=== PATIENT | male | born 1940 | race Caucasian/White ===

== ENCOUNTER 2017-07-01 13:27 | Outpatient (POV) | payer MEDICARE, OTHER, SELFPAY | END 2017-07-01 15:38 | disposition home or self-care (01) | PROVIDERS: Family Provider Internal Medicine Adolescent Medicine; PCP Internal Medicine Adolescent Medicine; Visit Provider Urology | DX: N40.1 Benign prostatic hyperplasia with lower urinary tract symptoms (principal); R33.8 Other retention of urine; N52.9 Male erectile dysfunction, unspecified | CPT/HCPCS: 81002; 99212 ==

== ENCOUNTER → 2017-09-16 17:54 | Outpatient (REF) | payer MEDICARE, OTHER, SELFPAY | LOC: LAB 17:54 | PROVIDERS: Visit Provider Urology | DX: N99.89 Other postprocedural complications and disorders of genitourinary system (principal) | CPT/HCPCS: 87086; 87088; 87186 ==

== ENCOUNTER → 2017-10-24 15:15 | Outpatient (CLI) | payer MEDICARE, OTHER, SELFPAY ==
[2017-10-24 15:37] LABS: Basophils # 0.1 K/mm3 (0-0.2); Basophils % 0.6 % (0.1-2.0); Eosinophils # 0.2 K/mm3 (0.0-0.4); Hematocrit 46.1 % (42.0-52.0); Hemoglobin 15.2 g/dL (14.1-18.0); Mean Corpuscular Hemoglobin 31.1 pg (27.0-31.2); Mean Corpuscular Volume 94.3 fl (80-94); Mean Platelet Volume 7.5 fl (7.4-10.4); Monocytes # 0.7 K/mm3 (0.1-1.0); Monocytes % 7.4 % (1.7-9.3); Neutrophils # 6.5 K/mm3 (1.8-7.8); Platelet Count 283 K/mm3 (142-424); Red Blood Count 4.89 M/mm3 (4.60-6.20); Red Cell Distribution Width 14.2 % (11.5-17.5); White Blood Count 9.4 K/mm3 (4.8-10.8)
[2017-10-24 16:59] LABS: Alanine Aminotransferase 24 U/L (12-78); Albumin Level 3.6 gm/dL (3.4-5.0); Alkaline Phosphatase 115 U/L (46-116); Anion Gap 16.6 mEq/L (5-15); Aspartate Amino Transferase 16 U/L (15-37); Bilirubin,Total 0.6 mg/dL (0.2-1.0); Blood Urea Nitrogen 24 mg/dL (7-18); Calcium 9.9 mg/dL (8.5-10.1); Carbon Dioxide 25 mmol/L (21.0-32.0); Chloride 105 mmol/L (98-107); Creatinine,Serum 1.12 mg/dL (0.70-1.30); Estimated Glomerular Filt Rate 64 ml/min (>60); GFR (African American) 77 ML/MIN (>60); Globulin 3.7 gm/dl (1.3-3.2); Glucose 178 mg/dL (74-106); Potassium 4.6 mmoL/L (3.5-5.1); Sodium 142 mmol/L (136-145); Total Protein,Serum 7.3 gm/dL (6.4-8.2)
== END ==
PROVIDERS: PCP Nurse Practitioner Family; Visit Provider Otolaryngology
DX: Z01.818 Encounter for other preprocedural examination (principal); H93.90 Unspecified disorder of ear, unspecified ear
CPT/HCPCS: 36415; 80053; 85025; 93005

== ENCOUNTER → 2018-07-13 09:58 | Outpatient (CLI) | payer MEDICARE, OTHER, SELFPAY ==
[2018-07-13 11:04] LABS: Hemoglobin A1C 8.5 % (0.0-7.0)
[2018-07-13 11:15] LABS: Alanine Aminotransferase 25 U/L (12-78); Albumin Level 3.6 gm/dL (3.4-5.0); Alkaline Phosphatase 108 U/L (46-116); Anion Gap 17.3 mEq/L (5-15); Aspartate Amino Transferase 18 U/L (15-37); Bilirubin,Total 0.6 mg/dL (0.2-1.0); Blood Urea Nitrogen 20 mg/dL (7-18); Calcium 9.4 mg/dL (8.5-10.1); Carbon Dioxide 23 mmol/L (21.0-32.0); Chloride 105 mmol/L (98-107); Chol/HDL Ratio 4.3 (1-3.5); Cholesterol 136 mg/dL (140-200); Creatinine,Serum 1.09 mg/dL (0.70-1.30); Estimated Glomerular Filt Rate 66 ml/min (>60); GFR (African American) 80 ML/MIN (>60); Globulin 3.5 gm/dl (1.3-3.2); Glucose 161 mg/dL (74-106); HDL Cholesterol 32 mg/dL (27-67); LDL Cholesterol 88 mg/dL (0-130); Potassium 4.3 mmoL/L (3.5-5.1); Sodium 141 mmol/L (136-145); Total Protein,Serum 7.1 gm/dL (6.4-8.2); Triglycerides 81 mg/dL (30-200); VLDL Cholesterol 16 mg/dL (0-40)
[2018-07-14 14:01] LABS: Microalbumin, Urine 105.4 ug/mL (Not Estab.)
== END ==
PROVIDERS: PCP Internal Medicine Adolescent Medicine; Visit Provider Nurse Practitioner Family
DX: E11.29 Type 2 diabetes mellitus with other diabetic kidney complication (principal); E78.2 Mixed hyperlipidemia; I10 Essential (primary) hypertension
CPT/HCPCS: 36415; 80053; 80061; 82043; 83036

== ENCOUNTER → 2021-05-19 10:17 | Outpatient (CLI) | payer MEDICARE, OTHER, SELFPAY ==
[2021-05-19 10:46] LABS: Basophils # 0.1 K/mm3 (0-0.2); Eosinophils # 0.3 K/mm3 (0.0-0.4); Eosinophils % 2.7 % (0.1-12.0); Hematocrit 50.7 % (42.0-52.0); Hemoglobin 16.5 g/dL (14.1-18.0); Lymphocytes # 2.1 K/mm3 (0.7-4.5); Lymphocytes % 20.1 % (10-50); Mean Corpuscular HGB Conc 32.7 g/dL (31.8-35.4); Mean Corpuscular Hemoglobin 32.1 pg (27.0-31.2); Mean Corpuscular Volume 98.3 fl (80-94); Mean Platelet Volume 8.7 fl (7.4-10.4); Monocytes # 0.7 K/mm3 (0.1-1.0); Monocytes % 6.9 % (1.7-9.3); Neutrophils # 7.3 K/mm3 (1.8-7.8); Neutrophils % 69.3 % (37.0-80.0); Platelet Count 306 K/mm3 (142-424); Red Blood Count 5.15 M/mm3 (4.60-6.20); Red Cell Distribution Width 14.9 % (11.5-17.5); White Blood Count 10.6 K/mm3 (4.8-10.8)
[2021-05-19 13:00] LABS: Alanine Aminotransferase 21 U/L (12-78); Albumin Level 3.9 g/dl (3.5-5.0); Albumin/Globulin Ratio 1.5 (1.1-1.8); Alkaline Phosphatase 92 U/L (38-126); Anion Gap 12.8 mEq/L (5-15); Aspartate Amino Transferase 25 U/L (17-59); Bilirubin,Total 0.8 mg/dl (0.2-1.3); Blood Urea Nitrogen 22 mg/dl (9-20); Calcium 9.6 mg/dl (8.4-10.2); Carbon Dioxide 26 mmol/L (22.0-30.0); Chloride 106 mmol/L (98-107); Chol/HDL Ratio 4.7 (1-3.5); Cholesterol 131 mg/dl (140-200); Estimated Glomerular Filt Rate 72 ml/min (>60); GFR (African American) 87 ML/MIN (>60); Globulin 2.6 g/dL (1.3-3.2); Glucose 134 mg/dl (74-100); HDL Cholesterol 28 mg/dl (40-60); Potassium 4.8 mmoL/L (3.5-5.1); Sodium 140 mmol/L (136-145); Total Protein,Serum 6.5 g/dl (6.3-8.2); Triglycerides 87 mg/dl (30-150); VLDL Cholesterol 17 mg/dL (0-40)
[2021-05-19 13:11] LABS: Direct LDL Cholesterol 88.59 mg/dL (100-129)
== END ==
PROVIDERS: Visit Provider Nurse Practitioner Family
DX: E11.29 Type 2 diabetes mellitus with other diabetic kidney complication (principal); I10 Essential (primary) hypertension; E78.2 Mixed hyperlipidemia; Z79.84 Long term (current) use of oral hypoglycemic drugs
CPT/HCPCS: 36415; 80053; 80061; 83036; 85025

== ENCOUNTER → 2022-06-20 09:39 | Outpatient (CLI) | payer MEDICARE, OTHER, SELFPAY ==
[2022-06-20 10:42] LABS: Alanine Aminotransferase 24 U/L (12-78); Albumin Level 3.8 g/dl (3.5-5.0); Albumin/Globulin Ratio 1.5 (1.1-1.8); Alkaline Phosphatase 136 U/L (38-126); Aspartate Amino Transferase 25 U/L (17-59); Bilirubin,Total 1.2 mg/dl (0.2-1.3); Blood Urea Nitrogen 22 mg/dl (9-20); Calcium 9.9 mg/dl (8.4-10.2); Carbon Dioxide 23 mmol/L (22.0-30.0); Chloride 106 mmol/L (98-107); Estimated Glomerular Filt Rate 65 ml/min (>60); GFR (African American) 78 ML/MIN (>60); Globulin 2.6 g/dL (1.3-3.2); Glucose 143 mg/dl (74-100); Sodium 138 mmol/L (136-145); Total Protein,Serum 6.4 g/dl (6.3-8.2)
[2022-06-20 11:02] LABS: Hemoglobin A1C 9.1 % (4.0-6.0)
== END ==
PROVIDERS: PCP Internal Medicine Adolescent Medicine; Visit Provider Internal Medicine Adolescent Medicine
DX: E11.65 Type 2 diabetes mellitus with hyperglycemia (principal); Z79.84 Long term (current) use of oral hypoglycemic drugs
CPT/HCPCS: 36415; 80053; 83036

== ENCOUNTER 2023-12-11 16:09 | Outpatient (CLI) | payer MEDICARE, OTHER, SELFPAY ==
--- NOTE | 2023-12-11 16:24 | XR_ITS ---
PROCEDURE INFORMATION: Exam: XR Left Hip Exam date and time: 12/11/23 04:27 PM Age: 83 years old Clinical indication: Hip pain; Left hip; Additional info: Sciatic pain TECHNIQUE: Imaging protocol: Radiologic exam of the left hip. Views: 2 or 3 views hip with pelvis when performed. COMPARISON: CR XR LUMBAR SPINE MIN 4V 12/11/23 04:27 PM FINDINGS: Bones/joints: Unremarkable. No acute fracture. Soft tissues: Unremarkable. IMPRESSION: No acute findings.
--- NOTE | 2023-12-11 16:25 | XR_ITS ---
PROCEDURE INFORMATION: Exam: XR Lumbosacral Spine Exam date and time: 12/11/23 04:27 PM Age: 83 years old Clinical indication: Low back pain; Additional info: Sciatic pain TECHNIQUE: Imaging protocol: Radiologic exam of the lumbosacral spine. Views: 4 or 5 views. COMPARISON: CR XR HIP LT 2-3V W/PELVIS 12/11/23 04:27 PM FINDINGS: Bones/joints: Degenerative changes. Vacuum disc L2-L3. Vacuum disc L4-L5. Vacuum disc L5-S1. No acute fracture. Normal alignment. Soft tissues: Unremarkable. IMPRESSION: No acute findings.
== END 2023-12-11 23:59 | disposition home or self-care (01) ==
LOC: RAD 16:10
PROVIDERS: PCP Internal Medicine Adolescent Medicine; Visit Provider Nurse Practitioner Family
DX: M54.32 Sciatica, left side (principal)
CPT/HCPCS: 72110; 73502

== ENCOUNTER 2024-01-26 08:56 | Outpatient (CLI) | payer MEDICARE, OTHER, SELFPAY ==
--- NOTE | 2024-01-26 | MR_ITS ---
FINAL REPORT TECHNIQUE: Multiplanar MR without gadolinium enhancement CLINICAL HISTORY: SCIATICA. BILATERAL BACK AND LEG PAIN FINDINGS: Sagittal images show normal vertebral height. Alignment is normal. Marrow signal pattern is unremarkable. There is moderate spondylosis. Note is made of bilateral renal masses which are likely cysts. The largest measures 4.4 cm on the right. L1-2: Mild annular disc bulge without central canal stenosis. L2-3: Moderate annular disc bulge. Facet arthropathy. Mild central canal stenosis and moderate bilateral neuroforaminal narrowing. L3-4: Moderate annular disc bulge. Facet arthropathy. Moderate central canal stenosis and moderate bilateral neuroforaminal narrowing, greatest on the left. L4-5: Moderate annular disc bulge. Facet arthropathy. Moderate to severe central canal stenosis with severe left and moderate right neuroforaminal narrowing. L5-S1: Moderate annular disc bulge. Advanced facet arthropathy. Moderate central canal stenosis with moderate to severe bilateral neuroforaminal narrowing. IMPRESSION: Multilevel degenerative disc disease as detailed above. Incidental finding of renal masses which likely represent cysts. Reviewed, Interpreted and Dictated by Mary Anne Blount MD Transcribed by Zahraa Thomas Authenticated and [facility]
== END 2024-01-26 23:59 | disposition home or self-care (01) ==
LOC: RAD 08:58
PROVIDERS: PCP Nurse Practitioner Family; Visit Provider Nurse Practitioner Family
DX: M54.42 Lumbago with sciatica, left side (principal); G89.29 Other chronic pain
CPT/HCPCS: 72148

== ENCOUNTER 2024-01-27 09:44 | Outpatient (RCR) | payer MEDICARE, OTHER, SELFPAY ==
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
== END 2024-01-27 09:55 | disposition home or self-care (01) ==
LOC: PT 09:44
PROVIDERS: Visit Provider Nurse Practitioner Family
DX: M79.671 Pain in right foot (principal); S91.301A Unspecified open wound, right foot, initial encounter
CPT/HCPCS: 97163

== ENCOUNTER 2024-02-05 09:52 | Outpatient (CLI) | payer MEDICARE, OTHER, SELFPAY ==
--- NOTE | 2024-02-05 09:59 | US_ITS ---
FINAL REPORT CLINICAL HISTORY: Bilateral kidney masses seen on MRI. COMPARISON: MR lumbar spine 01/25/2024 FINDINGS: RENAL ULTRASOUND Ultrasound images of the kidneys were obtained. Limited images of the liver parenchyma demonstrates normal echogenicity. The right kidney measures 12.3 cm in length. The left kidney measures 11.3 cm in length. There are multiple well-circumscribed anechoic structures in both kidneys consistent with benign cysts measuring up to 5.2 cm on the right. IMPRESSION: Multiple benign cysts bilateral kidneys. Reviewed, Interpreted and Dictated by Miguel Roberson MD Transcribed by Taylor Ruggiero Authenticated and [facility]
== END 2024-02-05 23:59 | disposition home or self-care (01) ==
PROVIDERS: PCP Internal Medicine Adolescent Medicine; Visit Provider Nurse Practitioner Family
DX: N28.89 Other specified disorders of kidney and ureter (principal)
CPT/HCPCS: 76770

== ENCOUNTER 2024-10-16 15:57 | Emergency (ER) | payer MEDICARE, OTHER, SELFPAY ==
[2024-10-16] VITALS (8 sets, daily range): BP systolic 116–140; BP diastolic 68–83; PULSE 53–58; RESP 14–27; TEMP 36.7–36.9; O2SAT 93–98; BMI 31.6
--- NOTE | 2024-10-16 16:07 | ED_ITS ---
Discharge Plan Disposition Chief Complaint: Neuro Symptoms/Deficit Prescriptions Prescriptions: No Action Janumet 50-1,000 mg tablet 1 tab PO BID sildenafil (pulm.hypertension) 20 mg tablet 20 mg PO DAILY Patient Comments: TAKE 1 TO 2 TABLET(S) BY MOUTH EVERY DAY NEEDED hydrochlorothiazide 12.5 mg capsule 12.5 mg PO DAILY Patient Comments: TAKE 1 CAPSULE BY MOUTH ONCE DAILY Jardiance 25 mg tablet 25 mg PO DAILY metformin 500 mg tablet 500 mg PO BID glimepiride 4 mg tablet 4 mg PO QAM bisoprolol-hydrochlorothiazide 2.5-6.25 mg tablet 1 tab PO DAILY amlodipine 10 mg tablet 10 mg PO DAILY finasteride 5 mg tablet 5 mg PO DAILY losartan 100 mg tablet 100 mg PO DAILY aspirin [Adult Low Dose Aspirin] 81 mg tablet,delayed release (DR/EC) 81 mg PO DAILY vitamin B complex [B Complex-Vitamin B12] tablet 1 tab PO QAM tamsulosin 0.4 mg capsule,extended release 24hr 0.4 mg PO DAILY sitagliptin phos-metformin [Janumet XR] 100-1,000 mg tablet, ER multiphase 24 hr 1 tab PO QPM atorvastatin 40 mg tablet 40 mg PO DAILY Referrals Follow up/Referrals: Delmar Damon MD [Primary Care Provider] - See instructions Stand Alone Forms Stand Alone Forms: Transfer Record - ED Print Language Print Language: Peruvian Discharge ED Provider: Sergio Sen General Adult HPI General Chief complaint: Neuro Symptoms/Deficit Stated complaint: Slured speech,droopy mouth eye Time Seen by Provider: 10/16/24 16:07 History of Present Illness HPI narrative: Patient presents for evaluation of right-sided facial droop that started yesterday morning. 2 midnights ago was his last known well. Symptoms have been constant since. He describes associated slurred speech and difficulty swallowing liquids and solids. No previous therapies. Has not had similar symptoms before. Denies any pain at this time. No numbness or tingling. No headache. No blurry vision or double vision. Please note that above description of symptoms, in this electronic medical record under categorization of recalled from ER triage doctor by RN are reflective of an initial nursing assessment, however, is not reflective of my full history and physical exam that was personally taken and clarified. Consequentially, this preceding description of symptoms, which may include the patient's categorized chief complaint in the EMR, do not reflect my personal clinical impression, and the ultimate description of history of present illness and patient stated complaints should be deferred to this section of the note. Unless stated otherwise or congruent with this section of the note, additional signs, symptoms, or incongruence should be interpreted as inaccurate with my clinical impression. Related Data Home Medications ?Medication ?Instructions ?Recorded ?Confirmed amlodipine 10 mg tablet 10 mg PO DAILY bp 09/16/17 08/10/19 aspirin 81 mg tablet,delayed 81 mg PO DAILY prevent 09/16/17 08/10/19 release (Adult Low Dose Aspirin) atorvastatin 40 mg tablet 40 mg PO DAILY cholestero; 09/16/17 08/10/19 bisoprolol 2.5 1 tab PO DAILY bp 09/16/17 08/10/19 mg-hydrochlorothiazide 6.25 mg tablet finasteride 5 mg tablet 5 mg PO DAILY urinary 09/16/17 08/10/19 glimepiride 4 mg tablet 4 mg PO QAM sugar 09/16/17 08/10/19 losartan 100 mg tablet 100 mg PO DAILY bp 09/16/17 08/10/19 metformin 500 mg tablet 500 mg PO BID sugar 09/16/17 08/10/19 sitagliptin phos 100 mg-metformin 1 tab PO QPM sugar 09/16/17 08/10/19 ER 1,000 mg tablet,extend rel 24h mp (Janumet XR) tamsulosin 0.4 mg capsule 0.4 mg PO DAILY prostate 09/16/17 08/10/19 vitamin B complex (B 1 tab PO QAM Supplement 09/16/17 08/10/19 Complex-Vitamin B12 tablet) sitagliptin phosphate 50 1 tab PO BID 08/11/18 08/10/19 mg-metformin 1,000 mg tablet (Janumet) empagliflozin 25 mg tablet 25 mg PO DAILY 08/10/19 08/10/19 (Jardiance) hydrochlorothiazide 12.5 mg capsule 12.5 mg PO DAILY 08/10/19 08/10/19 sildenafil (pulm.hypertension) 20 20 mg PO DAILY 08/10/19 08/10/19 mg tablet Allergies Allergy/AdvReac Type Severity Reaction Status Date / Time No Known Allergies Allergy Verified 08/10/19 11:26 [facility] Disclaimer: The information contained in this section may have been updated after the patient was seen, as this information can be updated by other users. Social History Smoking Status: Current every day smoker tobacco type: cigarettes packs per day: 2 alcohol intake: never substance use type: denies use current occupational status: employed Travel in the last 8 weeks: Inside the [place] household members: spouse housing: house current occupation: [employer] current occupational exposures/hazards: No caffeine: Yes Have you lived/traveled outside [place] in past 30 days?: No Contact w/someone who lives/traveled outside US past 30 days?: No Exposure to someone with infectious disease in past 14 days?: No Do you have a fever (greater than 100.4 F or 38 C)?: No Have you tested positive for COVID-19: No Exposed to someone with COVID-19 in past 14 days?: No Do you have a sore throat?: No Do you have a cough?: No Do you have any weakness?: No Do you have any diarrhea?: No Are you experiencing any unusual bleeding?: No Do you have any muscle aches/pain?: No Do you have any abdominal pain?: No Are you experiencing loss of taste or smell?: No Other Medical History Have you received the Flu Vaccine for this season: Yes Have you received the Pneumonia Vaccine: No ROS Obtained: Yes other As per HPI Physical Exam General General appearance: alert and in no apparent distress Head Head exam: atraumatic and normocephalic Eye Eye exam: Present normal appearance Neck Neck exam: Present normal inspection Chest Chest inspection: Present normal inspection and symmetric chest wall rise Respiratory Respiratory exam: Present normal lung sounds bilaterally; Absent respiratory distress Cardiovascular Cardiovascular exam: Present regular rate and normal rhythm Abdominal Exam Abdominal exam: Present soft Neurological Exam Neurological exam: Present alert and oriented X3 Expanded Neurological Exam Comment: Forehead sparing left-sided facial nerve palsy. Patient describes blurry vision on nasal visual field of right eye. No other focal neurologic deficit appreciated. Psychiatric Psychiatric exam: Present normal affect and normal mood Skin Skin exam: Present warm and dry Medical Decision Making Medical Records Medical records reviewed: Yes I reviewed the patient's medical records. Screening: Per USPSTF and CDC recommendations, given the prevalence of disease in our region, it is our hospital?s policy to screen for HIV and viral Hepatitis for all patients aged 18 and over and those with ongoing risk factors. Abner Inquiry Pt receiving controlled substance: No Vital Signs: 10/16/24 16:07 10/16/24 16:08 10/16/24 16:30 Temperature 98.1 F Temperature Source Oral Pulse Rate 56 L 58 L Pulse Rate [Right] 56 L Respiratory Rate 18 14 Blood Pressure 135/83 129/75 Blood Pressure [Right Arm] 135/83 Blood Pressure Mean [Right Arm] 100 02 Sat by Pulse Oximetry 98 98 93 L Oxygen Delivery Method Room Air Room Air Room Air 10/16/24 17:00 10/16/24 17:30 10/16/24 18:01 Temperature Temperature Source Pulse Rate 54 L 53 L 53 L Pulse Rate [Right] Respiratory Rate 27 H 18 19 Blood Pressure 116/68 135/82 131/76 Blood Pressure [Right Arm] Blood Pressure Mean [Right Arm] 02 Sat by Pulse Oximetry 98 96 96 Oxygen Delivery Method Room Air Room Air Room Air 10/16/24 18:31 Temperature Temperature Source Pulse Rate 57 L Pulse Rate [Right] Respiratory Rate 22 Blood Pressure 140/80 Blood Pressure [Right Arm] Blood Pressure Mean [Right Arm] 02 Sat by Pulse Oximetry 96 Oxygen Delivery Method Room Air Lab Data Lab Results 10/16/24 16:10: WBC 10.0, RBC 5.31, Hgb 16.6, Hct 49.8, MCV 93.8, MCH 31.3 H, MCHC 33.3, RDW 14.4, Plt Count 300, MPV 9.5, Neut % (Auto) 64.9, Lymph % (Auto) 22.6, [place] % (Auto) 9.0, Eos % (Auto) 2.5, Baso % (Auto) 0.6, Neut # (Auto) 6.5, Lymph # (Auto) 2.3, [place] # (Auto) 0.9, Eos # (Auto) 0.3, Baso # (Auto) 0.1, PT 10.9, INR 0.97, APTT 26.2, Sodium 137, Potassium 4.8, Chloride 100, Carbon Dioxide 25, Anion Gap 16.8 H, BUN 25 H, Creatinine 1.40 H, Estimated Creat Clear 54, Estimated GFR 49 L, Est GFR ( Amer) 59, Glucose 296 H, Calcium 9.5, Total Bilirubin 0.9, AST 36, ALT 31, Alkaline Phosphatase 118, Troponin I < 0.01, Total Protein 8.1 D, Albumin 4.4, Globulin 3.7 H, Albumin/Globulin Ratio 1.2, Triglycerides 175 H, Cholesterol 124 L, LDL Cholesterol Direct 73.36 L, VLDL Cholesterol 35, HDL Cholesterol 29 L, Cholesterol/HDL Ratio 4.3 H, Plasma/Serum Alcohol < 10, HCV Ab LETTY w/Rflx PCR Qn Negative, HIV Ag/Ab Combo Qual Negative 10/16/24 16:50: Urine Color Yellow, Urine Appearance Clear, Urine pH 6.5, Ur Specific [place] <= 1.005, Urine Protein Negative, Urine Glucose (UA) 3+, Urine Ketones Negative, Urine Blood Negative, Urine Nitrate Negative, Urine Bilirubin Negative, Urine Urobilinogen 1.0, Ur Leukocyte Esterase Negative, Urine RBC None, Urine WBC None, Ur Squamous Epith Cells None, Urine Bacteria None, Urine Opiates Screen Negative, Urine Methadone Screen Negative, Ur Barbituates Screen Negative, Ur Phencyclidine Scrn Negative, Ur Amphetamines Screen Negative, U Benzodiazepines Scrn Negative, Urine Cocaine Screen Negative, U Marijuana (THC) Screen Negative 10/16/24 16:10 10/16/24 16:10 Orders (Tests/Meds): ED MEDICATIONS Generic Name Dose Route Start Last Admin Trade Name Freq PRN Reason Stop Dose Admin Sodium Chloride 10 ml 10/16/24 16:11 Sodium Chloride 0.9% 10ml Flush Syringe IV 11/15/24 16:10 NEEDED PRN Maintain IV Site Sodium Chloride 10 ml 10/16/24 16:18 10/16/24 16:19 Sodium Chloride 0.9% 10ml Syr (Rad Only) IV 11/15/24 16:17 10 ml NEEDED PRN Administration Maintain IV Site Discontinued Medications Generic Name Dose Route Start Last Admin Trade Name Freq PRN Reason Stop Dose Admin Iopamidol 80 ml 10/16/24 16:18 10/16/24 16:18 Iopamidol-370 (76%);100ml Bottle IV 10/16/24 16:19 80 ml ONCE ONE Administration Nicotine 21 mg 10/16/24 18:19 10/16/24 18:32 Nicotine 21mg/24hr Patch TD 10/16/24 18:20 21 mg ONCE ONE Administration Sodium Chloride 50 ml 10/16/24 16:18 10/16/24 16:18 0.9 % Sodium Chloride 50 Ml Vial IV 10/16/24 16:19 50 ml ONCE ONE Administration ORDERS Category Date Time Status CT angio head Stat Cat Scan 10/16/24 16:[address] angio neck Stat Cat Scan 10/16/24 16:[address] head/brain wo con Stat Cat Scan 10/16/24 16:11 Completed Activated Partial Thrombo Time Stat Lab 10/16/24 16:10 Completed Complete Blood Count Auto Diff Stat Lab 10/16/24 16:10 Completed Comprehensive Metabolic Panel Stat Lab 10/16/24 16:10 Completed Drug Screen,Urine Stat Lab 10/16/24 16:50 Completed Ethyl Alcohol Stat Lab 10/16/24 16:10 Completed HIV Combo Stat Lab 10/16/24 16:10 Completed Hepatitis C Ab Qual. W/ RFX Stat Lab 10/16/24 16:10 Completed Lipid Panel Stat Lab 10/16/24 16:10 Completed Prothrombin Time INR Stat Lab 10/16/24 16:10 Completed Troponin I Q3H Lab 10/16/24 19:15 Ordered Troponin I Q3H Lab 10/16/24 22:15 Ordered Troponin I Stat Lab 10/16/24 16:10 Completed Urinalysis and Microscopic Stat Lab 10/16/24 16:50 Completed ECG Request Stat Y 10/16/24 16:11 Ordered Medical Decision Narrative: Patient with history and exam per above presenting for evaluation of facial droop Diagnoses considered include stroke, symptoms unlikely to be consistent with Murillo's palsy, time course inconsistent with TIA, stroke alert activated upon arrival. ED workup and treatment included: ED MEDICATIONS Generic Name Dose Route Start Last Admin Trade Name Freq PRN Reason Stop Dose Admin Sodium Chloride 10 ml 10/16/24 16:11 Sodium Chloride 0.9% 10ml Flush Syringe IV 11/15/24 16:10 NEEDED PRN Maintain IV Site Sodium Chloride 10 ml 10/16/24 16:18 10/16/24 16:19 Sodium Chloride 0.9% 10ml Syr (Rad Only) IV 11/15/24 16:17 10 ml NEEDED PRN Administration Maintain IV Site Discontinued Medications Generic Name Dose Route Start Last Admin Trade Name Freq PRN Reason Stop Dose Admin Iopamidol 80 ml 10/16/24 16:18 10/16/24 16:18 Iopamidol-370 (76%);100ml Bottle IV 10/16/24 16:19 80 ml ONCE ONE Administration Nicotine 21 mg 10/16/24 18:19 10/16/24 18:32 Nicotine 21mg/24hr Patch TD 10/16/24 18:20 21 mg ONCE ONE Administration Sodium Chloride 50 ml 10/16/24 16:18 10/16/24 16:18 0.9 % Sodium Chloride 50 Ml Vial IV 10/16/24 16:19 50 ml ONCE ONE Administration ORDERS Category Date Time Status CT angio head Stat Cat Scan 10/16/24 16:[address] angio neck Stat Cat Scan 10/16/24 16:[address] head/brain wo con Stat Cat Scan 10/16/24 16:11 Completed Activated Partial Thrombo Time Stat Lab 10/16/24 16:10 Completed Complete Blood Count Auto Diff Stat Lab 10/16/24 16:10 Completed Comprehensive Metabolic Panel Stat Lab 10/16/24 16:10 Completed Drug Screen,Urine Stat Lab 10/16/24 16:50 Completed Ethyl Alcohol Stat Lab 10/16/24 16:10 Completed HIV Combo Stat Lab 10/16/24 16:10 Completed Hepatitis C Ab Qual. W/ RFX Stat Lab 10/16/24 16:10 Completed Lipid Panel Stat Lab 10/16/24 16:10 Completed Prothrombin Time INR Stat Lab 10/16/24 16:10 Completed Troponin I Q3H Lab 10/16/24 19:15 Ordered Troponin I Q3H Lab 10/16/24 22:15 Ordered Troponin I Stat Lab 10/16/24 16:10 Completed Urinalysis and Microscopic Stat Lab 10/16/24 16:50 Completed ECG Request Stat Y 10/16/24 16:11 Ordered Labs were independently interpreted by me, significant for no acute findings Imaging was independently visualized and interpreted by me, significant for no acute findings Please refer to radiology report for full details. Although there is no large vessel occlusion on CT imaging, I believe patient would benefit from transfer to stroke center with further workup including possible MRI. Patient was accepted for transfer to outside facility. Critical Care Critical Care Time Critical Care Time: No
--- NOTE | 2024-10-16 16:07 | PC.NURSE ---
PT FSBS [id number]
--- NOTE | 2024-10-16 16:11 | ECG_ITS ---
APPROVED REPORT Exam: Resting ECG HR:56 bpm ECG Measurements Heart Rate 56 AXES OH 250 P 74 QRSd 106 QRS 78 QT 441 T [address] QTc [address] DEPRESSION [0.05+ mV ST DEPRESSION] ABNORMAL ECG Electronically signed by : FRANCOIS RODRIGUEZ, 10/16/2024 23:26:54
--- NOTE | 2024-10-16 16:11 | CT_ITS ---
PROCEDURE INFORMATION: Exam: CTA Head With Contrast, Arteriography Exam date and time: 10/16/2024 4:19 PM Age: 84 years old Clinical indication: Stroke-like symptoms; Other: Stroke symptoms; Additional info: Possible stroke TECHNIQUE: Imaging protocol: Computed tomographic angiography of the head with contrast. Exam focused on the arteries. 3D rendering (Not supervised by radiologist): MIP and/or 3D reconstructed images were created by the technologist. Radiation optimization: All CT scans at this facility use at least one of these dose optimization techniques: automated exposure control; mA and/or kV adjustment per patient size (includes targeted exams where dose is matched to clinical indication); or iterative reconstruction. Contrast material: ISO 370; Contrast volume: 80 ml; Contrast route: INTRAVENOUS (IV); COMPARISON: CT HEAD/BRAIN WO CON 10/16/2024 4:16 PM FINDINGS: ANTERIOR CIRCULATION: Right internal carotid artery: Calcification involving the right carotid siphon without significant stenosis. Right middle cerebral artery: No occlusion or significant stenosis. No aneurysm. Right anterior cerebral artery: No occlusion or significant stenosis. No aneurysm. Left internal carotid artery: Calcification involving the left carotid siphon with utog-uv-pycranpt stenosis. Left middle cerebral artery: No occlusion or significant stenosis. No aneurysm. Left anterior cerebral artery: No occlusion or significant stenosis. No aneurysm. POSTERIOR CIRCULATION: Right vertebral artery: No occlusion or significant stenosis. No aneurysm. Left vertebral artery: No occlusion or significant stenosis. No aneurysm. Basilar artery: No occlusion or significant stenosis. No aneurysm. Right posterior cerebral artery: No occlusion or significant stenosis. No aneurysm. Left posterior cerebral artery: No occlusion or significant stenosis. No aneurysm. IMPRESSION: 1. [id number] left carotid siphon stenosis. 2. No large vessel occlusion.
--- NOTE | 2024-10-16 16:11 | CT_ITS ---
PROCEDURE INFORMATION: Exam: CT Head Without Contrast Exam date and time: 10/16/2024 4:16 PM Age: 84 years old Clinical indication: Stroke-like symptoms; Visual disturbance; Left facial droop; Additional info: Possible stroke TECHNIQUE: Imaging protocol: Computed tomography of the head without contrast. Radiation optimization: All CT scans at this facility use at least one of these dose optimization techniques: automated exposure control; mA and/or kV adjustment per patient size (includes targeted exams where dose is matched to clinical indication); or iterative reconstruction. Other technique: STROKE PROTOCOL was implemented. COMPARISON: CT HEAD/BRAIN WO CON 10/16/2024 4:16 PM FINDINGS: Brain: Age-related volume loss. No acute intracranial Decreased attenuation of the supratentorial white matter is likely secondary to chronic microvascular ischemia. Hemorrhage, midline shift or significant intracranial mass effect. Cerebral ventricles: Ventriculomegaly is commensurate for degree of volume loss. Paranasal sinuses: Visualized sinuses are unremarkable. No fluid levels. Mastoid air cells: Visualized mastoid air cells are well aerated. Bones: Unremarkable. No acute fracture. Soft tissues: Unremarkable. IMPRESSION: No acute intracranial abnormality. ASSESSMENT: ASPECTS ([place] Stroke Program Early CT Score) is 10.
--- NOTE | 2024-10-16 16:11 | CT_ITS ---
PROCEDURE INFORMATION: Exam: CTA Neck With Contrast Exam date and time: 10/16/2024 4:19 PM Age: 84 years old Clinical indication: Stroke-like symptoms; Visual disturbance; Left facial droop; Additional info: Possible stroke TECHNIQUE: Imaging protocol: Computed tomographic angiography of the neck with contrast. Exam focused on the cervical segments of the vasculature. 3D rendering (Not supervised by radiologist): MIP and/or 3D reconstructed images were created by the technologist. Radiation optimization: All CT scans at this facility use at least one of these dose optimization techniques: automated exposure control; mA and/or kV adjustment per patient size (includes targeted exams where dose is matched to clinical indication); or iterative reconstruction. Contrast material: ISOVUE 370; Contrast volume: 80 ml; Contrast route: INTRAVENOUS (IV); COMPARISON: CT HEAD/BRAIN WO CON 10/16/2024 4:16 PM FINDINGS: Limitations: Patient motion. Right common carotid artery: Mild calcification at the right common carotid bifurcation without significant stenosis. Right internal carotid artery: No stenosis of the extracranial segment. No dissection or occlusion. Right external carotid artery: No occlusion or stenosis of the origin. Left common carotid artery: Calcification of the left common carotid bifurcation without significant stenosis. Left internal carotid artery: No stenosis of the extracranial segment. No dissection or occlusion. Left external carotid artery: No occlusion or stenosis of the origin. Right vertebral artery: Moderate right vertebral artery V2 stenosis. Left vertebral artery: Left vertebral artery is dominant. Aorta: Aortic calcification and atheromatous irregularity. Soft tissues: Normal. No significant soft tissue swelling. Bones/joints: Previous median sternotomy. Degenerative change involving the spine. IMPRESSION: 1. Moderate right vertebral artery V2 stenosis. 2. No significant stenosis involving the ICAs. REFERENCES: NASCET CRITERIA. The degree of stenosis in the cervical segment of the internal carotid artery is based on NASCET criteria. Normal is no stenosis. Mild is less than 50% stenosis. Moderate is 50-69% stenosis. Severe is 70% to 99% stenosis. Total occlusion is no detectable patent lumen.
--- NOTE | 2024-10-16 16:12 | PC.NURSE ---
pt to CT
--- NOTE | 2024-10-16 16:12 | PC.NURSE ---
PT TO CT
[2024-10-16 16:17] LABS: Basophils # 0.1 K/mm3 (0-0.2); Basophils % 0.6 % (0.1-2.0); Eosinophils # 0.3 K/mm3 (0.0-0.4); Eosinophils % 2.5 % (0.1-12.0); Hematocrit 49.8 % (42.0-52.0); Hemoglobin 16.6 g/dL (14.1-18.0); Lymphocytes # 2.3 K/mm3 (0.7-4.5); Lymphocytes % 22.6 % (10-50); Mean Corpuscular HGB Conc 33.3 g/dL (31.8-35.4); Mean Corpuscular Hemoglobin 31.3 pg (27.0-31.2); Mean Corpuscular Volume 93.8 fl (80-94); Mean Platelet Volume 9.5 fl (7.4-10.4); Monocytes # 0.9 K/mm3 (0.1-1.0); Neutrophils # 6.5 K/mm3 (1.8-7.8); Neutrophils % 64.9 % (37.0-80.0); Nucleated Red Blood Cells # 0 10^3/uL; Nucleated Red Blood Cells % 0 %; Platelet Count 300 K/mm3 (142-424); Red Blood Count 5.31 M/mm3 (4.60-6.20); Red Cell Distribution Width 14.4 % (11.5-17.5); Red Cell Distribution Width-SD 49.9 fL
[2024-10-16] MEDS: 0.9 % SODIUM CHLORIDE 50 ML VIAL IV (16:18)
[2024-10-16] MEDS: IOPAMIDOL-370 (76%);100ML BOTTLE 80 ML IV (16:18)
[2024-10-16] MEDS: SODIUM CHLORIDE 0.9% 10ML SYR (RAD ONLY) 10 ML IV (16:19)
[2024-10-16 16:23] LABS: Albumin Level 4.4 g/dl (3.5-5.0); Chloride 100 mmol/L (98-107); Sodium 137 mmol/L (136-145)
[2024-10-16 16:24] LABS: Potassium 4.8 mmoL/L (3.5-5.1)
[2024-10-16 16:26] LABS: Alanine Aminotransferase 31 U/L (12-78); Albumin/Globulin Ratio 1.2 (1.1-1.8); Alkaline Phosphatase 118 U/L (38-126); Anion Gap 16.8 mEq/L (5-15); Aspartate Amino Transferase 36 U/L (17-59); Bilirubin,Total 0.9 mg/dl (0.2-1.3); Blood Urea Nitrogen 25 mg/dl (9-20); Carbon Dioxide 25 mmol/L (22.0-30.0); Cholesterol 124 mg/dl (140-200); Creatinine Clearance Estimated 54 mL/min (50-200); Estimated Glomerular Filt Rate 49 ml/min (>60); GFR (African American) 59 ML/MIN (>60); Globulin 3.7 g/dL (1.3-3.2); Total Protein,Serum 8.1 g/dl (6.3-8.2); Triglycerides 175 mg/dl (30-150); VLDL Cholesterol 35 mg/dL (0-40)
[2024-10-16 16:27] LABS: Calcium 9.5 mg/dl (8.4-10.2); Chol/HDL Ratio 4.3 (1-3.5); Glucose 296 mg/dl (74-100); HDL Cholesterol 29 mg/dl (40-60)
[2024-10-16 16:31] LABS: Activated Partial Thrombo Time 26.2 seconds (22.8-30.6); INR 0.97 (0.9-1.1); Prothrombin Time 10.9 seconds (10.1-12.5)
[2024-10-16 16:34] LABS: Ethyl Alcohol < 10 mg/dl (0-10)
[2024-10-16 16:37] LABS: Direct LDL Cholesterol 73.36 mg/dL (100-129)
[2024-10-16 16:38] LABS: Troponin I < 0.01 ng/ml (0.00-0.034)
[2024-10-16 16:58] LABS: Appearance,Urine CLEAR (Clear); Bilirubin,Urine Negative (Negative); Blood, Urine Negative (Negative); Color,Urine YELLOW (Yellow); Glucose,Urine (UA) 3+ (Negative); Ketones,Urine Negative (Negative); Leukocyte Esterase,Urine Negative (Negative); Microscopic, Urine URINE MICROSCOPIC (MICROSCOPIC); Nitrate,Urine Negative (Negative); PH,Urine 6.5 (5.0-8.5); Protein,Urine Negative (Negative); Specific Gravity, Urine <= 1.005 (1.005-1.030)
[2024-10-16 17:10] LABS: Amphetamine/Metha Screen,Urine Negative ng/ml (<1000)
[2024-10-16 17:11] LABS: Barbiturates Screen,Urine Negative ng/ml (<200)
[2024-10-16 17:12] LABS: Benzodiazepines Screen,Urine Negative ng/ml (<200); Cannabinoid Screen,Urine Negative ng/ml (<50)
[2024-10-16 17:13] LABS: Cocaine Screen,Urine Negative ng/ml (<300); Methadone Screen,Urine Negative ng/ml (<300)
[2024-10-16 17:14] LABS: Opiate Screen,Urine Negative ng/ml (<300)
[2024-10-16 17:15] LABS: Phencyclidine Screen,Urine Negative ng/ml (<25)
[2024-10-16 17:20] LABS: Hepatitis C Ab Qual. W/ RFX NEGATIVE (Negative)
[2024-10-16 17:21] LABS: HIV Combo NEGATIVE (Negative)
--- NOTE | 2024-10-16 17:41 | PC.NURSE ---
Called [facility] for a patient transfer for . face sheet was faxed over to them.
--- NOTE | 2024-10-16 17:43 | PC.NURSE ---
just called back to talk to Dr. Sen.
--- NOTE | 2024-10-16 18:05 | PC.NURSE ---
delbert justin on phone with [facility]
[2024-10-16] MEDS: NICOTINE 21MG/24HR PATCH 21 MG TD (18:32)
== END 2024-10-16 19:30 | disposition short-term general hospital (02) ==
PROVIDERS: Emergency Provider Emergency Medicine; PCP Internal Medicine Adolescent Medicine
DX: R47.81 Slurred speech (principal); R29.810 Facial weakness; H53.8 Other visual disturbances; R13.11 Dysphagia, oral phase; F17.210 Nicotine dependence, cigarettes, uncomplicated; Z11.59 Encounter for screening for other viral diseases; Z11.4 Encounter for screening for human immunodeficiency virus [HIV]
CPT/HCPCS: 70450; 70496; 70498; 80053; 80061; 80307; 80320; 81001; 84484; 85025; 85610; 85730; 86803; 87389; 99285; Q9967

== ENCOUNTER 2025-01-09 11:22 | Emergency (ER) | payer MEDICARE, OTHER, SELFPAY ==
--- OUTSIDE RECORDS SUMMARY | 2024-10-09 17:30 | XMS_ITS ---
Author Organization [facility] Address [address] [place] [address] Care Team Providers Care Sales Representative Facility Services Name Role Phone Sona Foote Primary Care Provider Migration, Provider Unavailable Unavailable [facility] Conversion Encounter Medications Medication SIG (Take, Route, Frequency, Duration) Notes Start Date End Date Status B-12 1000 MCG 1 tab(s) orally once a day Active Aspirin 81 MG 1 TAB(S) ORALLY ONCE A DAY *Please review and pick correct strength-formulat ion from Fyber options. If intended option is not shown, discontinue and re-order from Quick Search* Active Contour Test NA FF - USE DIRECTED TWICE DAILY *Please review and pick correct strength-formulat ion from Fyber options. If intended option is not shown, discontinue and re-order from Quick Search* 09/10/2010 Active KELLEY CONTOUR GLUCOMETER DIRECTED *Please review for potential replacement for e-prescription and drug interaction check* 03/24/2010 Active amLODIPine Besylate 10 MG 1 tab(s) orall y once a day; Duration: 90 days Active metFORMIN HCl 1000 MG 1 tab(s) orally 2 times a day; Duration: 90 days Active hydroCHLOROthiazide 12.5 MG 1 cap(s) orally once a day; Duration: 90 Active Glimepiride 4 MG 1 tab(s) orally twice a day; Duration: 90 days Active Vitamin D3 125 MCG 1 CAP(S) ORALLY ONCE A DAY; Duration: 30 DAY(S) *Please review and pick correct strength-formulat ion from Fyber options. If intended option is not shown, discontinue and re-order from Quick Search* Active Sildenafil Citrate 20 MG 1 tab(s) orally once a day; Duration: 30 days Active Triamcinolone Acetonide 0.1 % APPLY CREAM EXTERNALLY THREE TIMES DAILY FOR 14 DAYS; Duration: 14 Active Atorvastatin Calcium 80 MG 1 tab(s) orally once a day; Duration: 30 day(s) Active ZIAC 10 MG-6.25 MG 1 TAB(S) ORALLY ONCE A DAY; Duration: 90 DAYS *Please review for potential replacement for e-prescription and drug interaction check* Active Losartan Potassium 100 MG 1 tab(s) orall y once a day; Duration: 90 Active Farxiga 5 MG 1 tab(s) orally twice a day; Duration: 30 days 05/15/2023 Active CONTOUR LANCETS DIRECTED BID *Please review for potential replacement for e-prescription and drug interaction check* 03/20/2010 Active Encounters Encounter Location Date Provider Diagnosis [facility] [address] [facility] [address] [place] [address] 10/09/2024 Provider Migration Plan Of Treatment Medication Medication Name Sig Start Date Stop Date Notes amLODIPine Besylate 10 MG 1 tab(s) orall y once a day; Duration: 90 days metFORMIN HCl 1000 MG 1 tab(s) orally 2 times a day; Duration: 90 days Glimepiride 4 MG 1 tab(s) orally twic e a day; Duration: 90 days Sildenafil Citrate 20 MG 1 tab(s) orally once a day; Duration: 30 days Atorvastatin Calcium 80 MG 1 tab(s) oral ly once a day; Duration: 30 day(s) Next Appt Details Provider Name:Delmar Damon, 02/02/2025 02:00:00 PM, [address] [facility], [address], [place], [address], Progress Notes * Daylin TURCIOS CDOB:[birth year] (84 yo M)Acc No.[id number]:10/09/2024 Patient: Jairo Daylin SANTACRUZ Provider: Demarcus jimenez Migration :1940 A ge:84 Y S ex:Male Date:10/09/2024 Address:[address] [place] [address] [place], [id number] Pcp:Sona Foote Subjective: * Chief Complaints: * 1 . Multum To Medispan Conversion Encounter. * Medical History: * Medications: T aking Vitamin D3 125 MCG CAPSULE 1 CAP(S) ORALLY ONCE A DAY , Notes to Pharmacist: *Please review and pick correct strength-formulation from Medispan options. If intended option is not shown, discontinue and re-order from Quick Search*, Taking B-12 1000 MCG Tablet 1 tab(s) orally once a day , Taking Aspirin 81 MG TABLET 1 TAB(S) ORALLY ONCE A DAY , Notes to Pharmacist: *Please review and pick correct strength-formulation from Medispan options. If intended option is not shown, discontinue and re-order from Quick Search*, Taking Contour Test NA NA FF - USE DIRECTED TWICE DAILY , Notes to Pharmacist: *Please review and pick correct strength-formulation from Medispan options. If intended option is not shown, discontinue and re-order from Quick Search*, Taking KELLEY CONTOUR GLUCOMETER DIRECTED , Notes to Pharmacist: *Please review for potential replacement for e-prescription and drug interaction check*, Taking CONTOUR LANCETS DIRECTED BID , Notes to Pharmacist: *Please review for potential replacement for e-prescription and drug interaction check*, Taking Triamcinolone Acetonide 0.1 % Cream APPLY CREAM EXTERNALLY THREE TIMES DAILY FOR 14 DAYS , Taking Losartan Potassium 100 MG Tablet 1 tab(s) orally once a day , Taking Farxiga 5 MG Tablet 1 tab(s) orally twice a day , Taking ZIAC 10 MG-6.25 MG TABLET 1 TAB(S) ORALLY ONCE A DAY , Notes to Pharmacist: *Please review for potential replacement for e-prescription and drug interaction check*, Taking hydroCHLOROthiazide 12.5 MG Capsule 1 cap(s) orally once a day Objective: * Vitals: Assessment: Plan: * Treatment: * * Electronic signature of Jai funk Migration on 01/09/2025 at 11:40 AM EDT Sign off status: Pending * Provider: Demarcus jimenez Migration Date: 0 10/09/2024 Generated for Gerson gabriel/Lennie/Woody on: 0 01/09/2025 11:40 AM EDT
[2025-01-09] VITALS (21 sets, daily range): BP systolic 103–161; BP diastolic 54–97; PULSE 49–66; RESP 14–15; TEMP 36.4–36.8; O2SAT 92–100; BMI 30.4
--- OUTSIDE RECORDS SUMMARY | 2025-01-09 11:40 | XMS_ITS | Referral Summary ---
Author Organization [employer] ([place], [place], [place], [place]) Address [address] [place] [address] Care Team Providers Care Balance Wheel Screw Hole Driller Name Role Phone Sona Foote APRN Primary Care Provider [phone] Encounters Date Type Department Care Team Description 10/18/2024 Telephone [facility] [address] [place] [address] Sona Foote APRN Hospital Follow Up 10/16/2024 8:11 PM EDT - 10/17/2024 3:43 PM EDT Hospital Encounter [address] Neuro Telemetry [address] [place] [address] Diego Mendoza MD Brammell, Korey, DO Zohary, Yasser, MD Discharge Disposition: Home or Self Care 10/16/2024 Travel from Last 3 Months Allergies No known active allergies Medications metFORMIN (GLUCOPHAGE) 500 MG tabletIndicatio ns:type 2 diabetes mellitus Take 1 tablet (500 mg total) by mouth 2 (two) times daily with breakfast and dinner Look-alike/S ound-alike medication. Active hydroCHLOROthia zide (MICROZIDE) 12.5 mg capsule Take 1 capsule (12.5 mg total) by mouth daily. Active amLODIPine (NORVASC) 2.5 MG tablet Take by mouth daily Unknown dosage . Active losartan (COZAAR) 100 MG tablet Take 1 tablet (100 mg total) by mouth daily. Active glimepiride (AMARYL) 4 MG tablet Take 1 tablet (4 mg total) by mouth 2 (two) times daily. Active bisoproloL-hydr ochlorothiazide (ZIAC) 10-6.25 mg per tablet Take 1 tablet by mouth daily. Active aspirin 81 MG EC tablet Take 1 tablet (81 mg total) by mouth daily. Active cholecalciferol (VITAMIN D3) 125 mcg (5,000 unit) tablet Take 1 tablet (5,000 Units total) by mouth daily. Active cyanocobalamin 1000 MCG tablet Take 2.5 tablets (2,500 mcg total) by mouth daily. Active atorvastatin (LIPITOR) 40 MG tablet Take 1 tablet (40 mg total) by mouth nightly. Active sildenafiL (REVATIO) tablet Take 1 tablet (20 mg total) by mouth nightly. Active ertugliflozin (Steglatro) 5 mg tabletIndicatio ns:type 2 diabetes mellitus Take 1 tablet (5 mg total) by mouth daily. Active Active Problems Problem Noted Date Diagnosed Date Ischemic stroke 10/16/2024 Social History Tobacco Use Types Packs/Day Years Used Date Smoking Tobacco: Never Assessed Utilities Answer Date Recorded In the past 12 months, has t he electric, gas, oil, or water company threatened to shut off services in your home? No 10/16/2024 Interpersonal Safety Answer Date Record ed How often does anyone, isidro prado family and friends, physically hurt you? Never 10/16/2024 How often does anyone, harpreetiram eve family and friends, insult or talk down to you? Never 10/16/2024 How often does anyone, isidro prado family and friends, threaten you with harm? Never 10/16/2024 How often does anyone, isidro prado family and friends, scream or curse at you? Never 10/16/2024 Housing Stability Answer Date Recorded What is your living situation today? I have a [facility] place to live 10/16/[address] you li ve. Do you have problems with any of the following? None of the above 10/16/2024 Food Insecurity Answer Date Recorded Within the past 12 months, y ou worried that your food would run out before you got money to buy more. Never true 10/16/2024 Within the past 12 months, t he food you bought just didn't last and you didn't have money to get more. Never true 10/16/2024 Transportation Needs Answer Date Record ed In the past 12 months, has l ack of reliable transportation kept you from medical appointments, meetings, work or from getting things needed for daily living? No 10/16/2024 Financial Resource Strain Answer Date R ecorded How hard is it for you to pa y for the very basics like food, housing, medical care, and heating? Would you say it is: Not hard at all 10/16/2024 Employment Answer Date Recorded Do you want help finding or keeping work or a job? I do not need or want help 10/16/2024 Family and Community Support Answer Shayne e Recorded If for any reason you need h elp with day-to-day activities such as bathing, preparing meals, shopping, managing finances, etc., do you get the help you need? I don't need any help 10/16/2024 Feeling Lonely or Isolated 0 10/16 Educational Attainment Answer Date Jose Luis rded Do you speak a language other than [facility] at [facility]? No 10/16/2024 Do you want help with school or training? For example, starting or completing job training or getting a high school diploma, GED or equivalent. No 10/16/2024 Physical Activity Answer Date Recorded Number of minutes of exercise per week 540 10/16/2024 Self Management Answer Date Recorded Because of a physical, menta l, or emotional condition, do you have serious difficulty concentrating, remembering, or making decisions? (5 years or older) No 10/16/2024 Because of a physical, menta l, or emotional condition, do you have difficulty doing errands alone such as visiting a doctor's office or shopping? (15 years or older) No 10/16/2024 Substance Use Answer Date Recorded How many times in the past y ear have you used prescription drugs for non-medical reasons? Never 10/16/2024 How many times in the past year have you used il legal drugs? Never 10/16/2024 Mental Health Answer Date Recorded Calculation of above two rows 0 Sex and Gender Information Value Date Recorded Sex Assigned at Not on file Legal Sex Male 5:59 PM CDT Gender Identity Not on file Sexual Orientation Not on file Last Filed Vital Signs Vital Sign Reading Time Taken Comments Blood Pressure 150/89 10/17/2024 9:25 AM EDT Pulse 56 10/17/2024 9:25 AM EDT Temperature 36.6 C (97.8 F) 10/17/2024 9:25 AM EDT Respiratory Rate 16 10/17/2024 9:25 AM EDT Oxygen Saturation 96% 10/17/2024 5:00 AM EDT Inhaled Oxygen Concentration - - Weight 94.3 kg (208 lb) 10/17/2024 12:18 AM EDT Height 172.7 cm (5' 8 ) 10/17/2024 12:18 AM EDT Body Mass Index 31.63 10/17/2024 12:18 AM EDT Plan of Treatment Not on file Procedures Procedure Name Priority Date/Time Associated Diagnosis Comments NOVA GLUCOSE POC Routine 10/17/2024 10:4 0 AM EDT NOVA GLUCOSE POC Routine 10/17/2024 5:00 AM EDT CBC W/ AUTO DIFF Add-On 10/17/2024 3:40 AM EDT MAGNESIUM Routine 10/17/2024 3:40 AM EDT BASIC METABOLIC PANEL Routine 10/17/2024 3:40 AM EDT LIPID PANEL Routine 10/17/2024 3:40 AM EDT TSH W REFLEX FT4 Routine 10/17/2024 3:40 AM EDT VITAMIN B12 Routine 10/17/2024 3:40 AM EDT HEMOGLOBIN A1C Routine 10/17/2024 3:40 AM EDT MR BRAIN WITHOUT IV CONTRAST STAT 10/17/2024 1:50 AM EDT NOVA GLUCOSE POC Routine 10/16/2024 8:46 PM EDT from Last 3 Months Results * (ABNORMAL) Glucose, Nova Meter (10/17/2024 10:40 AM EDT) Only the most recent of3 resultswithin the time period is included. [facility] POC-GLUCOSE 274(H) 70 - 110 mg/dL 10/17/2024 10:45 AM EDT [facility] Comment: In the event of poor peripheral blood flow, venous or arterial blood should be used due to the potential of erroneous results. 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 Supervisor ID is - [id number] Froy Gallagher MD POINT OF CARE TEST ORDERABLES F inal Result Performing Organization Address City/State/[facility] Co de Phone Number [facility] [address] [place] [address] * (ABNORMAL) CBC with Automated Diff (10/17/2024 3:40 AM EDT) [facility] WBC 9.9(H) 4.2 - 9.1 K/ L 10/17/2024 6:52 AM EDT [facility] RBC 5.16 4.63 - 6.08 M/ L 10/17/2024 6:52 AM EDT [facility] Hemoglobin 16.6 13.7 - 17.5 GM/DL 10/17/2024 6:52 AM EDT [facility] Hematocrit 47.9 40.1 - 51.0 % 10/17/2024 6:52 AM EDT [facility] MCV 93(H) 79 - 92 fL 10/17/2024 6:52 AM EDT [facility] MCH 32.2 25.7 - 32.2 pg 10/17/2024 6:52 AM EDT [facility] MCHC 34.7 32.3 - 36.5 GM/DL 10/17/2024 6:52 AM EDT [facility] RDW 14.1 11.6 - 14.4 % 10/17/2024 6:52 AM EDT [facility] Platelets 265 140 - 375 K/CU MM 10/17/2024 6:52 AM EDT [facility] MPV 10.1 9.4 - 12.4 fL 10/17/2024 6:52 AM EDT [facility] % Neutros 66 34 - 68 % 10/17/2024 6:52 AM EDT [facility] % Lymphs 22 22 - 53 % 10/17/2024 6:52 AM EDT [facility] % Monos 10 5 - 12 % 10/17/2024 6:52 AM EDT [facility] % Eos 3 1 - 7 % 10/17/2024 6:52 AM EDT [facility] % Baso 0 0 - 1 % 10/17/2024 6:52 AM EDT [facility] NRBC Absolute <0.01 0 - 0.012 K/ul 10/17/2024 6:52 AM EDT [facility] # Neutros 6.52(H) 1.78 - 5.38 K/ L 10/17/2024 6:52 AM EDT [facility] # Lymphs 2.13 1.32 - 3.57 K/ L 10/17/2024 6:52 AM EDT [facility] # Monos 0.95(H) 0.30 - 0.82 K/ L 10/17/2024 6:52 AM EDT [facility] # Eos 0.26 0.04 - 0.54 K/ L 10/17/2024 6:52 AM EDT [facility] # Baso 0.04 0.01 - 0.08 K/ L 10/17/2024 6:52 AM EDT [facility] Immature Granulocytes-Re lative 0.30 0.01 - 0.43 % 10/17/2024 6:52 AM EDT [facility] # IG 0.03 0.00 - 0.03 K/uL 10/17/2024 6:52 AM EDT [facility] Blood Venipuncture / Unknown 10/17/2024 3:40 AM EDT 10/17/2024 4:13 AM EDT Narrative [facility] - 10/17/2024 6:52 AM EDT When CBC w/ Auto Diff is ordered the lab will add a Manual Differential as a quality check at no additional charge if: Lymphocytes greater than seventy five percent with normal or increased WBC Monocytes greater than Fifteen percent Basophil greater than four percent Bands >10% or several immature myeloids are seen on scan Blast? Flag noted Atypical Lymph flag noted us [employer] DO LAB BLOOD ORDERABLES Final Res ult Performing Organization Address City/[facility]/ZIP Co de Phone Number [facility] [address] [phone] * TSH with Reflex FT4 (10/17/2024 3:40 AM EDT) TSH 0.850 0.350 - 4.940 uIU/mL 10/17/2024 5:08 AM EDT [facility] Blood Venipuncture / Unknown 10/17/2024 3:40 AM EDT 10/17/2024 4:15 AM EDT [employer] DO LAB BLOOD ORDERABLES Final Res ult Performing Organization Address [facility] Co de Phone Number [facility] [address] [phone] * Magnesium (10/17/2024 3:40 AM EDT) Magnesium 1.7 1.6 - 2.6 mg/dL 10/17/2024 5:08 AM EDT [facility] Blood Venipuncture / Unknown 10/17/2024 3:40 AM EDT 10/17/2024 4:15 AM EDT [employer] DO LAB BLOOD ORDERABLES Final Res ult Performing Organization Address City/[facility]/ZIP Co de Phone Number [facility] [address] [phone] * (ABNORMAL) Hemoglobin A1c (10/17/2024 3:40 AM EDT) Hemoglobin A1C 8.9(H) 4.0 - 5.6 % 10/17/2024 4:44 AM EDT [facility] Comment: Hemoglobin A1C levels are related to mean glucose during the preceding 2-3 months. Less than 7% demonstrates glycemic control in diabetic patients. Hemoglobin AlC % Suggested Diagnosis > or = 6.5 Diabetic 5.7 - 6.4 Prediabetic <5.7 Non-diabetic eAVG Glucose 208.73(H) 70 - 126 mg/dL 10/17/2024 4:44 AM EDT [facility] Blood Venipuncture / Unknown 10/17/2024 3:40 AM EDT 10/17/2024 4:13 AM EDT [employer] DO LAB BLOOD ORDERABLES Final Res ult [facility] [address] [phone] * Vitamin B12 (10/17/2024 3:40 AM EDT) Vitamin B12 544 213 - 816 pg/mL 10/17/2024 5:08 AM EDT [facility] Blood Venipuncture / Unknown 10/17/2024 3:40 AM EDT 10/17/2024 4:15 AM EDT [employer] DO LAB BLOOD ORDERABLES Final Res ult [facility] [address] [phone] * Lipid panel (10/17/2024 3:40 AM EDT) Triglycerides 71 <=149 mg/dL 10/17/2024 5:08 AM EDT [facility] Comment: Normal: < 150 mg/dL Borderline High: 150 to 199 mg/dL High: 200 to 499 mg/dL Very High: >/= 500 mg/dL Cholesterol 116 100 - 199 mg/dL 10/17/2024 5:08 AM EDT [facility] Comment: Child: Desirable: < 170 mg/dL Borderline: 170 to 199 mg/dL High: >/= 200 mg/dL Adult: Desirable: < 200 mg/dL Borderline: 200 to 239 mg/dL High: >/= 240 mg/dL HDL Cholesterol 32 See Comment mg/dL 10/17/2024 5:08 AM EDT [facility] Comment: Major risk factor for heart disease: < 40 mg/dL Negative risk factor for heart disease: >/= 60 mg/dL LDL Cholesterol, Calculated 70 0 - 100 mg/dL 10/17/2024 5:08 AM EDT [facility] Comment: Optimal: < 100 mg/dL Near or above optimal: 100 to 129 mg/dL Borderline high: 130 to 159 mg/dL High: 160 to 189 mg/dL Very high: >/= 190 mg/dL Based on AHA/NCEP Guidelines LDl/HDL Ratio 2 0 - 4 10/17/2024 5:08 AM EDT [facility] Cholesterol/HDL ratio 3.6 0.0 - 5.0 mg/dL 10/17/2024 5:08 AM EDT [facility] VLDL Cholesterol 14.2 5 - 40 mg/dL 10/17/2024 5:08 AM EDT [facility] Blood Venipuncture / Unknown 10/17/2024 3:40 AM EDT 10/17/2024 4:15 AM EDT us Isaiah Rowan DO LAB BLOOD ORDERABLES Final Res ult [facility] [address] [place] [address], [facility] [phone] * (ABNORMAL) Basic Metabolic Panel (10/17/2024 3:40 AM EDT) Sodium 135(L) 136 - 145 meq/L 10/17/2024 5:08 AM EDT [facility] Potassium 3.9 3.4 - 5.1 meq/L 10/17/2024 5:08 AM EDT [facility] CO2 23 22 - 29 meq/L 10/17/2024 5:08 AM EDT [facility] Chloride 105 98 - 112 meq/L 10/17/2024 5:08 AM EDT [facility] Glucose 153(H) 82 - 115 mg/dL 10/17/2024 5:08 AM EDT [facility] BUN 18.6 8.4 - 25.7 mg/dL 10/17/2024 5:08 AM EDT [facility] Creatinine 1.02 0.72 - 1.25 mg/dL 10/17/2024 5:08 AM EDT [facility] BUN/Creatinine 18 8 - 20 10/17/2024 5:08 AM EDT [facility] Calcium 9.5 8.4 - 10.2 mg/dL 10/17/2024 5:08 AM EDT [facility] Anion Gap 11 4 - 12 10/17/2024 5:08 AM EDT [facility] eGFR (mL/min/1.73m2) 73 >=60 mL/min/1.7 3m2 10/17/2024 5:08 AM EDT [facility] Osmolality Calc 275.2 mOsm/kg 5:08 AM EDT [facility] Blood Venipuncture / Unknown 10/17/2024 3:40 AM EDT 10/17/2024 4:15 AM EDT us Isaiah Rowan DO LAB BLOOD ORDERABLES Final Res ult [facility] [address] [phone] * MR Brain Without IV Contrast (10/17/2024 1:50 AM EDT) Anatomical Region Laterality Modality Head, Brain Magnetic Resonan ce (MRI) 10/17/2024 7:34 AM EDT Impressions 10/17/2024 7:40 AM EDT 1. Small acute infarcts involving the right thalamus, right posterior limb of the internal capsule, and right parietal deep white matter. No large territorial infarct is noted. 2. There is no hemorrhage. 3. Advanced atrophy with severe microvascular change. Images reviewed, interpreted, dictated and electronically signed by Saul Thomas MD Voice child development professor technology ([employer]) is used for the dictation of this note and sound-alike words might be erroneously placed despite reviewing this note for accuracy. Errors in dictation may reflect use of voice recognition software and not all errors in child development professor may have been detected prior to signing. Narrative 10/17/2024 7:40 AM EDT MRI BRAIN WITHOUT CONTRAST HISTORY: Left facial droop TECHNIQUE: Multiplanar, multisequence images of the brain were performed without contrast. FINDINGS: The diffusion-weighted images demonstrate small areas of restricted diffusion involving the right thalamus, right internal capsule, and right parietal deep white matter. These findings are consistent with small infarcts. There is no large territorial infarct. The cervicomedullary junction is normal. There is advanced atrophy. There is significant abnormal increased T2 signal throughout the white matter consistent with severe microvascular change. There is no edema or hemorrhage. There is no mass or mass effect. Procedure Note Saul Thomas MD - 10/17/2024 MRI BRAIN WITHOUT CONTRAST HISTORY: Left facial droop TECHNIQUE: Multiplanar, multisequence images of the brain were performed without contrast. FINDINGS: The diffusion-weighted images demonstrate small areas of restricted diffusion involving the right thalamus, right internal capsule, and right parietal deep white matter. These findings are consistent with small infarcts. There is no large territorial infarct. The cervicomedullary junction is normal. There is advanced atrophy. There is significant abnormal increased T2 signal throughout the white matter consistent with severe microvascular change. There is no edema or hemorrhage. There is no mass or mass effect. IMPRESSION: 1. Small acute infarcts involving the right thalamus, right posterior limb of the internal capsule, and right parietal deep white matter. No large territorial infarct is noted. 2. There is no hemorrhage. 3. Advanced atrophy with severe microvascular change. Images reviewed, interpreted, dictated and electronically signed by Saul Thomas MD Voice child development professor technology ([employer]) is used for the dictation of this note and sound-alike words might be erroneously placed despite reviewing this note for accuracy. Errors in dictation may reflect use of voice recognition software and not all errors in child development professor may have been detected prior to signing. us Isaiah Rowan DO IMG MRI ORDERABLES Final Resul t from Last 3 Months Insurance MEDICARE PART A B [employer] Advance Directives For more information, please contact: [phone] * Full Code (Latest Code Status on File) Date Activated Date Inactivated Comments 10/16/2024 9:07 PM 10/17/2024 4:44 PM Care Teams Balance Wheel Screw Hole Driller Relationship Specialty Start Date End Date Sona Foote, CLERICAL PRODUCTION WORKER [address] [place] [address] PCP - General Nurse Practitioner 10/16/24
--- OUTSIDE RECORDS SUMMARY | 2025-01-09 11:40 | XMS_ITS | Clinical Summary ---
Author Organization [employer] ([place], [place], [place], [place]) Address [address] [place] [address] Care Team Providers Care Surg Rn Name Role Phone DarySona gerard KELVIN Primary Care Provider + [phone] Allergies No known active allergies Medications metFORMIN [...] Noted Date Diagnosed Date Ischemic stroke 10/16/2024 Encounters Date Type Department Care Team Description 10/18/2024 Telephone [facility] [address] [place] [address] Sona Foote APRN [facility] Follow Up 10/16/2024 8:11 PM EDT - 10/17/2024 3:43 PM EDT Hospital Encounter [address] Neuro Telemetry [address] [place] [address] Diego Mendoza MD Brammell, Korey, DO Zohary, Yasser, MD Discharge Disposition: Home or Self Care 10/16/2024 Travel from Last 3 Months Social History Tobacco Use Types Packs/Day Years [...] living situation today? I have a [facility] place to live 10/16/2024 Think about the [...] Do you speak a language other than Citizen [place] [facility]? No 10/16/2024 Do you want help with [...] 10/17/2024 12:18 AM EDT Plan of Treatment Health Maintenance Due Date Last Done Comments Depression Screening (12+) 1952 Tobacco Cessation Counseling and Screening (12+) 1952 Medicare Initial AWV G0438 08/08/2008 Respiratory Syncytial Virus (RSV) Adult or (1 - 1-dose 75+ series) 2017 COVID-19 VACCINE ( - season) 2024, 03/01/2021 Falls Risk Screening 07/07/2024 Influenza Vaccine (#1) 2025 DTAP/TDAP/TD VACCINES (2 - Td or Tdap) 01/11/2034 Shingles Vaccine (Zoster) Completed 09/16/2023, 05/2023 Pneumococcal 50+ years Completed 02/18/2024 Procedures Procedure Name Priority Date/Time Associated Diagnosis [...] of3 resultswithin the time period is included. POC-GLUCOSE 274(H) 70 - 110 mg/dL 10/17/2024 10:45 AM EDT [facility] Comment: In the event of poor peripheral blood flow, venous or arterial blood should be used due to the potential of erroneous results. Notified Nurse RBV Chief Engineer [id number] 10/17/2024 10:45 AM EDT [facility] Blood WHOLE BLOOD / Unknown 10/17/2024 10:40 AM EDT 10/17/2024 10:45 AM EDT Narrative [facility] - 10/17/2024 10:45 AM EDT Chief Engineer ID is - [id number] us Froy Gallagher MD POINT OF CARE TEST ORDERABLES F inal Result [facility] [address] [place] [address], [facility] [phone] * (ABNORMAL) CBC with Automated Diff (10/17/2024 3:40 AM EDT) WBC 9.9(H) 4.2 - 9.1 K/ L 10/17/2024 6:52 AM EDT [facility] RBC 5.16 4.63 - 6.08 M/ L 10/17/2024 6:52 AM EDT [facility] Hemoglobin 16.6 13.7 - 17.5 GM/DL 10/17/2024 6:52 AM EDT [facility] Hematocrit 47.9 40.1 - 51.0 % 10/17/2024 6:52 AM EDT [facility] MCV 93(H) 79 - 92 fL 10/17/2024 6:52 AM EDT [facility] MCH 32.2 25.7 - 32.2 pg 10/17/2024 6:52 AM EDT [facility] MCHC 34.7 32.3 - 36.5 GM/DL 10/17/2024 6:52 AM EDT [facility] RDW 14.1 11.6 - 14.4 % 10/17/2024 6:52 AM EDT [facility] Platelets 265 140 - 375 K/CU MM 10/17/2024 6:52 AM EDT [facility] MPV 10.1 9.4 - 12.4 fL 10/17/2024 6:52 AM EDT [facility] % Neutros 66 34 - 68 % 10/17/2024 6:52 AM EDT [facility] % Lymphs 22 22 - 53 % 10/17/2024 6:52 AM EDT [facility] % Monos 10 5 - 12 % 10/17/2024 6:52 AM EDT [facility] % Eos 3 1 - 7 % 10/17/2024 6:52 AM EDT [facility] % Baso 0 0 - 1 % 10/17/2024 6:52 AM EDT [facility] NRBC Absolute <0.01 0 - 0.012 K/ul 10/17/2024 6:52 AM EDT [facility] # Neutros 6.52(H) 1.78 - 5.38 K/ L 10/17/2024 6:52 AM EDT [facility] # Lymphs 2.13 1.32 - 3.57 K/ L 10/17/2024 6:52 AM EDT [facility] # Monos 0.95(H) 0.30 - 0.82 K/ L 10/17/2024 6:52 AM EDT [facility] # Eos 0.26 0.04 - 0.54 K/ L 10/17/2024 6:52 AM EDT [facility] # Baso 0.04 0.01 - 0.08 K/ L 10/17/2024 6:52 AM EDT [facility] Immature Granulocytes-Re lative 0.30 0.01 - 0.43 % 10/17/2024 6:52 AM EDT [facility] # IG 0.03 0.00 - 0.03 K/uL 10/17/2024 6:52 AM EDT [facility] Blood Venipuncture / Unknown 10/17/2024 3:40 AM EDT 10/17/2024 4:13 AM EDT Narrative [facility] - 10/17/2024 6:52 AM EDT When [...] Flag noted Atypical Lymph flag noted us Kuponjo DO LAB BLOOD ORDERABLES Final Res ult Performing Organization Address [facility]/ZIP Co de Phone Number [facility] [address] [phone] * TSH with Reflex FT4 (10/17/2024 3:40 AM EDT) TSH 0.850 0.350 - 4.940 uIU/mL 10/17/2024 5:08 AM EDT [facility] Blood Venipuncture / Unknown 10/17/2024 3:40 AM EDT 10/17/2024 4:15 AM EDT us Kuponjo DO LAB BLOOD ORDERABLES Final Res ult [facility] [address] [phone] * Magnesium (10/17/2024 3:40 AM EDT) Magnesium 1.7 1.6 - 2.6 mg/dL 10/17/2024 5:08 AM EDT [facility] Blood Venipuncture / Unknown 10/17/2024 3:40 AM EDT 10/17/2024 4:15 AM EDT [facility] LAB BLOOD ORDERABLES Final Res ult Performing Organization Address [facility] Co de Phone Number [facility] [address] [phone] * (ABNORMAL) Hemoglobin A1c (10/17/2024 3:40 AM EDT) Hemoglobin A1C 8.9(H) 4.0 - 5.6 % 10/17/2024 4:44 AM EDT [facility] Comment: Hemoglobin A1C levels are related to mean glucose during the preceding 2-3 months. Less than 7% demonstrates glycemic control in diabetic patients. Hemoglobin AlC % Suggested Diagnosis > or = 6.5 Diabetic 5.7 - 6.4 Prediabetic <5.7 Non-diabetic eAVG Glucose 208.73(H) 70 - 126 mg/dL 10/17/2024 4:44 AM EDT [facility] Blood Venipuncture / Unknown 10/17/2024 3:40 AM EDT 10/17/2024 4:13 AM EDT Kuponjo DO LAB BLOOD ORDERABLES Final Res ult Performing Organization Address City/State/[facility] Co de Phone Number [facility] [address] [phone] * Vitamin B12 (10/17/2024 3:40 AM EDT) Vitamin B12 544 213 - 816 pg/mL 10/17/2024 5:08 AM EDT [facility] Blood Venipuncture / Unknown 10/17/2024 3:40 AM EDT 10/17/2024 4:15 AM EDT us Isaiah Rowan DO LAB BLOOD ORDERABLES Final Res ult [facility] [address] [phone] * Lipid panel (10/17/2024 3:40 AM EDT) Triglycerides 71 <=149 mg/dL 10/17/2024 5:08 AM EDT [facility] Comment: Normal: < 150 mg/dL Borderline High: 150 to 199 mg/dL High: 200 to 499 mg/dL Very High: >/= 500 mg/dL Cholesterol 116 100 - 199 mg/dL 10/17/2024 5:08 AM EDT [facility] Comment: Child: Desirable: < 170 mg/dL Borderline: 170 to 199 mg/dL High: >/= 200 mg/dL Adult: Desirable: < 200 mg/dL Borderline: 200 to 239 mg/dL High: >/= 240 mg/dL HDL Cholesterol 32 See Comment mg/dL 10/17/2024 5:08 AM EDT [facility] Comment: Major risk factor for heart disease: < 40 mg/dL Negative risk factor for heart disease: >/= 60 mg/dL LDL Cholesterol, Calculated 70 0 - 100 mg/dL 10/17/2024 5:08 AM EDT [facility] Comment: Optimal: < 100 mg/dL Near or above optimal: 100 to 129 mg/dL Borderline high: 130 to 159 mg/dL High: 160 to 189 mg/dL Very high: >/= 190 mg/dL Based on AHA/NCEP Guidelines LDl/HDL Ratio 2 0 - 4 10/17/2024 5:08 AM EDT [facility] Cholesterol/HDL ratio 3.6 0.0 - 5.0 mg/dL 10/17/2024 5:08 AM EDT [facility] VLDL Cholesterol 14.2 5 - 40 mg/dL 10/17/2024 5:08 AM EDT [facility] Blood Venipuncture / Unknown 10/17/2024 3:40 AM EDT 10/17/2024 4:15 AM EDT us Isaaih Rowan DO LAB BLOOD ORDERABLES Final Res ult [facility] [address] [phone] * (ABNORMAL) Basic Metabolic Panel (10/17/2024 3:40 AM EDT) Sodium 135(L) 136 - 145 meq/L 10/17/2024 5:08 AM EDT [facility] Potassium 3.9 3.4 - 5.1 meq/L 10/17/2024 5:08 AM EDT [facility] CO2 23 22 - 29 meq/L 10/17/2024 5:08 AM EDT [facility] Chloride 105 98 - 112 meq/L 10/17/2024 5:08 AM EDT [facility] Glucose 153(H) 82 - 115 mg/dL 10/17/2024 5:08 AM EDT [facility] BUN 18.6 8.4 - 25.7 mg/dL 10/17/2024 5:08 AM EDT [facility] Creatinine 1.02 0.72 - 1.25 mg/dL 10/17/2024 5:08 AM EDT [facility] BUN/Creatinine 18 8 - 20 10/17/2024 5:08 AM EDT [facility] Calcium 9.5 8.4 - 10.2 mg/dL 10/17/2024 5:08 AM EDT [facility] Anion Gap 11 4 - 12 10/17/2024 5:08 AM EDT [facility] eGFR (mL/min/1.73m2) 73 >=60 mL/min/1.7 3m2 10/17/2024 5:08 AM EDT [facility] Osmolality Calc 275.2 mOsm/kg 5:08 AM EDT [facility] Blood Venipuncture / Unknown 10/17/2024 3:40 AM EDT 10/17/2024 4:15 AM EDT us Isaiah Rowan DO LAB BLOOD ORDERABLES Final Res ult [facility] [address] [place] [phone], [facility] [phone] * MR Brain Without IV Contrast (10/17/2024 [...] electronically signed by Saul Thomas MD Voice legal researcher technology ([employer]) is used for the dictation of this note and sound-alike words might be erroneously placed despite reviewing this note for accuracy. Errors in dictation may reflect use of voice recognition software and not all errors in legal researcher may have been detected prior to signing. [...] electronically signed by Saul Thomas MD Voice legal researcher technology ([employer]) is used for the dictation of this note and sound-alike words might be erroneously placed despite reviewing this note for accuracy. Errors in dictation may reflect use of voice recognition software and not all errors in legal researcher may have been detected prior to signing. Isaiah Rowan DO IMG MRI ORDERABLES Final Resul t from Last [address] [place] [address] MEDICARE PART A B [employer] Advance Directives For more information, please contact: [phone] * Full Code (Latest Code Status on File) Date Activated Date Inactivated Comments 10/16/2024 9:07 PM 10/17/2024 4:44 PM Care Teams Surg Rn Relationship Specialty Start Date End Date Sona Foote, INSURANCE CLAIMS EXAMINER[address] [place] [address] PCP - General Nurse Practitioner 10/16/24
--- OUTSIDE RECORDS SUMMARY | 2025-01-09 11:42 | XMS_ITS | Patient Health Record ---
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 Name Role Phone Sona Foote Primary Care Provider [phone] Delmar Damon Unavailable [phone] Migration, Provider Unavailable Unavailable Allergies No Known Allergies Results Component Value Reference Range Notes MRI : Lumbosacral Spine Reviewed date:02/02/2024 09:24:57 AM Interpretation: Performing Lab: Notes/Report: MRI : Lumbosacral Spine Reviewed date:02/02/2024 09:24:57 AM Interpretation: Performing Lab: Notes/Report: LIPID PANEL, STANDARD ([id number]) Reviewed date:11/05/2024 10:21:27 AM Interpretation: Performing Lab:CB, [facility] [id number] [facility] [[email or web address], [facility] HospitalYfzqJR[address] Aron Johnson Notes/Report: NON-FASTING; NON-FASTING; NON-FASTING CHOLESTEROL, TOTAL 117 <200 mg/dL HDL CHOLESTEROL 32 > OR = 40 mg/dL TRIGLYCERIDES 123 <150 mg/dL LDL-CHOLESTEROL 65 Reference range: <100 Desirable range <100 mg/dL for primary prevention; <70 mg/dL for patients with CHD or diabetic patients with > or = 2 CHD risk factors. LDL-C is now calculated using the Ainsley calculation, which is a validated novel method providing better accuracy than the Friedewald equation in the estimation of LDL-C. Kirk DUNN et al. EJ. 2013;310(19): 3439-2074 (http://education.AlterG.com/faq/IFQ434) CHOL/HDLC RATIO 3.7 <5.0 (calc) NON HDL CHOLESTEROL 85 <130 mg/dL (calc) For patients with diabetes plus 1 major ASCVD risk factor, treating to a non-HDL-C goal of <100 mg/dL (LDL-C of <70 mg/dL) is considered a therapeutic option. COMPREHENSIVE METABOLIC PANE L ([id number]) Reviewed date:11/05/2024 10:21:28 AM Interpretation: Performing Lab:ANDRA [employer] [id number] [employer] [facility] [place] [id number] Aron Johnson Notes/Report: NON-FASTING; NON-FASTING; NON-FASTING GLUCOSE 140 65-99 mg/dL Fasting reference interval For someone without known diabetes, a glucose value >125 mg/dL indicates that they may have diabetes and this should be confirmed with a follow-up test. UREA NITROGEN (BUN) 28 7-25 mg/dL CREATININE 1.29 0.70-1.22 mg/dL EGFR 55 > OR = 60 mL/min/1.73m2 BUN/CREATININE RATIO 22 6-22 (calc) SODIUM 137 135-146 mmol/L POTASSIUM 4.5 3.5-5.3 mmol/L CHLORIDE 103 98-110 mmol/L CARBON DIOXIDE 23 20-32 mmol/L CALCIUM 10.2 8.6-10.3 mg/dL PROTEIN, TOTAL 7.1 6.1-8.1 g/dL ALBUMIN 4.2 3.6-5.1 g/dL GLOBULIN 2.9 1.9-3.7 g/dL (calc) ALBUMIN/GLOBULIN RATIO 1.4 1.0-2.5 (calc) BILIRUBIN, TOTAL 0.9 0.2-1.2 mg/dL ALKALINE PHOSPHATASE 108 35-144 U/L AST 19 10-35 U/L ALT 21 9-46 U/L HEMOGLOBIN A1c (496) Reviewed date:11/05/2024 10:21:28 AM Interpretation: Performing Lab:[facility] [employer] [id number] [employer] [facility] [place] [id number] Aron Johnson Notes/Report: NON-FASTING; NON-FASTING; NON-FASTING HEMOGLOBIN A1c 9.9 <5.7 % For someone without known diabetes, a hemoglobin A1c value of 6.5% or greater indicates that they may have diabetes and this should be confirmed with a follow-up test. For someone with known diabetes, a value <7% indicates that their diabetes is well controlled and a value greater than or equal to 7% indicates suboptimal control. A1c targets should be individualized based on duration of diabetes, age, comorbid conditions, and other considerations. Currently, no consensus exists regarding use of hemoglobin A1c for diagnosis of diabetes for children. Ultrasound : Renal, bilatera l Reviewed date:02/10/2024 10:41:36 AM Interpretation: Performing Lab: Notes/Report: Ultrasound : Renal, bilatera l Reviewed date:02/10/2024 10:41:36 AM Interpretation: Performing Lab: Notes/Report: BASIC METABOLIC PANEL ([id number] ) Reviewed date:02/20/2024 02:10:46 PM Interpretation: Performing Lab:AN[facility] [employer] [id number] [place] [employer], [id number] Aron Johnson Notes/Report: NON-FASTING; NON-FASTING GLUCOSE 211 65-99 mg/dL Fasting reference interval For someone without known diabetes, a glucose value >125 mg/dL indicates that they may have diabetes and this should be confirmed with a follow-up test. UREA NITROGEN (BUN) 20 7-25 mg/dL CREATININE 1.16 0.70-1.22 mg/dL EGFR 63 > OR = 60 mL/min/1.73m2 BUN/CREATININE RATIO SEE NOTE: 6-22 (calc) Not Reported: BUN and Creatinine are within reference range. SODIUM 137 135-146 mmol/L POTASSIUM 4.9 3.5-5.3 mmol/L CHLORIDE 101 98-110 mmol/L CARBON DIOXIDE 25 20-32 mmol/L CALCIUM 10.0 8.6-10.3 mg/dL HEMOGLOBIN A1c (496) Reviewed date:02/20/2024 02:10:47 PM Interpretation: Performing Lab:[facility] [employer] [id number] [employer], TellFiSpefDC[address] Aron Johnson Notes/Report: NON-FASTING; NON-FASTING HEMOGLOBIN A1c 8.8 <5.7 % of total Hgb For someone without known diabetes, a hemoglobin A1c value of 6.5% or greater indicates that they may have diabetes and this should be confirmed with a follow-up test. For someone with known diabetes, a value <7% indicates that their diabetes is well controlled and a value greater than or equal to 7% indicates suboptimal control. A1c targets should be individualized based on duration of diabetes, age, comorbid conditions, and other considerations. Currently, no consensus exists regarding use of hemoglobin A1c for diagnosis of diabetes for children. This test was performed on the Ashley bobbi c503 platform. Effective 09/10/23, a change in test platforms from the Davis [employer]itor Internal to the Ashley bobbi c503 may have shifted HbA1c results compared to historical results. Based on laboratory validation testing conducted at [facility], the Ashley platform relative to the Davis platform had an average increase in HbA1c value of < or = 0.3%. This difference is within accepted variability established by the National Glycohemoglobin Standardization Program. Note that not all individuals will have had a shift in their results and direct comparisons between historical and current results for testing conducted on different platforms is not recommended. Medications Medication SIG (Take, Route, Frequency, Duration) Notes Start Date End Date Status amLODIPine Besylate 10 MG 1 tab(s) orall y once a day; Duration: 90 days Active hydroCHLOROthiazide 12.5 MG 1 cap(s) orally once a day; Duration: 90 Active Aspirin 81 MG 1 TAB(S) ORALLY ONCE A DAY *Please review and pick correct strength-formulat ion from I Move You options. If intended option is not shown, discontinue and re-order from Quick Search* Active Losartan Potassium 100 MG Take 1 tablet by mouth once daily; Duration: 90 Active Farxiga 10 MG 1 tablet Orally Once a day; Duration: 90 days 10/20/2024 Active Vitamin D3 125 MCG 1 CAP(S) ORALLY ONCE A DAY; Duration: 30 DAY(S) *Please review and pick correct strength-formulat ion from I Move You options. If intended option is not shown, discontinue and re-order from Quick Search* Active Atorvastatin Calcium 80 MG Take 1 tablet by mouth once daily; Duration: 90 Active Glimepiride 4 MG Take 1 tablet by mouth twice daily; Duration: 90 Active metFORMIN HCl 1000 MG Take 1 tablet by mouth twice daily; Duration: 90 Active Clopidogrel Bisulfate 75 MG Take 1 tablet by mouth once daily; Duration: 30 Active Sildenafil Citrate 20 MG Take 1 tablet b y mouth once daily for 30 days; Duration: 30 Active B-12 1000 MCG 1 tab(s) orally once a day Active SMATOOS GLUCOMETER DIRECTED *Please review for potential replacement for e-prescription and drug interaction check* 03/24/2010 Active Contour Test NA FF - USE DIRECTED TWICE DAILY *Please review and pick correct strength-formulat ion from I Move You options. If intended option is not shown, discontinue and re-order from Quick Search* 09/10/2010 Active Bisoprolol-hydroCHLOROthi azide 10-6.25 MG 1 tablet Orally Once a day Active Vitamin C 500 MG as directed Orally Active CONTOUR LANCETS DIRECTED BID *Please review for potential replacement for e-prescription and drug interaction check* 03/20/2010 Active Immunizations Vaccine Route Administration Date Status Comme nts SHINGRIX IM Intramuscular 06/16/2023 Administered SHINGRIX IM Intramuscular 09/16/2023 Administered Prevnar PCV-20 (Pneumococcal conjugate 20) IM Intramuscular 02/18/2024 Administered Prevnar PCV-13 (Pneumococcal conjugate 13) IM Intramuscular 09/25/2015 Administered Influenza (Fluzone)--Medicare only Unknown 03/26/2012 Administered Influenza (Fluzone)--Medicare only IM Intramuscular 06/26/2015 Administered Influenza (Fluzone)--Medicare only IM Intramuscular 03/28/2016 Administered Influenza (Fluzone)--Medicare only IM Intramuscular 06/09/2017 Administered Influenza (Fluzone)--Medicare only IM Intramuscular 04/01/2018 Administered Fluzone High Dose IM Intramuscular 03/15/2019 Administered Fluzone High Dose IM Intramuscular 03/16/2020 Administered Fluzone High Dose IM Intramuscular 04/16/2021 Administered Fluzone High Dose IM Intramuscular 04/15/2022 Administered Fluzone High Dose IM Intramuscular 03/24/2023 Administered Fluvirin--Influenza vaccine 3+ year IM Intramuscular 04/14/2008 Administered Fluvirin--Influenza vaccine 3+ year IM Intramuscular 04/14/2009 Administered Fluvirin--Influenza vaccine 3+ year IM Intramuscular 05/10/2010 Administered Fluvirin--Influenza vaccine 3+ year IM Intramuscular 04/08/2011 Administered Boostrix IM Intramuscular 01/12/2024 Administered Arexvy IM Intramuscular 06/16/2023 Administered Adacel (Tdap) IM Intramuscular 09/25/2015 Administered Social History Tobacco Use: Social History Observation Description Date Details (start date - stop date) Current Smoker NA - NA Smoking: Question Answer Notes Are you a: current smoker How often do you smoke cigarettes? every day How many cigarettes a day do you smoke? 11-20 Are you interested in quitting? Not ready to michael t Problems Problem Type SNOMED Code ICD Code Onset Dates Problem Status W/U Status Risk Notes Problem Diabetic renal disease (559083481) Type 2 diabetes mellitus with other diabetic kidney complication (E11.29) Active confirmed Problem Mixed hyperlipidemia (711582294) Mixed hyperlipidemia (E78.2) Active confirmed Problem Sciatica (85970532) Lumbago with sciatica, left side (M54.42) Active confirmed Problem Lower urinary tract symptoms due to benign prostatic hypertrophy (88723146857410) Enlarged prostate with lower urinary tract symptoms (N40.1) Active confirmed Problem Proteinuria (63091620) Proteinuria, unspecified (R80.9) Active confirmed Problem Tobacco use (282223259) Tobacco use (Z72.0) Active confirmed Problem Vitamin D deficiency (81072549) Vitamin D deficiency (E55.9) Active confirmed Problem Tobacco use (556768688) Tobacco use disorder (Z72.0) Active confirmed Problem Essential hypertension (52025575) Essential hypertension (I10) Active confirmed Problem Vitamin B12 deficiency (non anemic) (08177191) B12 deficiency (E53.8) Active confirmed Problem Foot callus (558077833) Callus of foot (L84) Active confirmed Problem Body mass index 30.00 to 34.99 (506072651367985) BMI 34.0-34.9,adult (Z68.34) Active confirmed Problem Obese class I (329360371108488) BMI 33.0-33.9,adult (Z68.33) Active confirmed Problem Chronic pain (64341264) Other chronic pain (G89.29) Active confirmed Problem BMI 30+ - obesity (271385736) BMI 32.0-32.9,adult (Z68.32) Active confirmed Problem Body mass index 30+ - obesity (683660025) BMI 30.0-30.9,adult (Z68.30) Active confirmed Problem Memory loss (64130729) Memory loss (R41.3) Active confirmed Problem Erectile dysfunction (disorder) (686544573) Erectile dysfunction, unspecified erectile dysfunction type (N52.9) Active confirmed Problem Morbid obesity (387338573) Morbid obesity due to excess calories (E66.01) Active confirmed Problem Angina (121076376) 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) Active confirmed Problem Microalbuminuria (637480528) Microalbuminuria (R80.9) Active confirmed Problem Carpal tunnel syndrome (18628221) Carpal tunnel syndrome, left (G56.02) Active confirmed Problem Elevated PSA (119151125) Elevated PSA (R97.2) Active confirmed Problem Degenerative disc disease (07776997) DDD (degenerative disc disease), lumbar (M51.36) Active confirmed Problem Sciatica (73669197) Acute left-s ided low back pain with left-sided sciatica (M54.42) Active confirmed Problem Non-compliant behavior (finding) (047388166) Non-compliant patient (Z91.19) Active confirmed Problem Hyperglycemia due to type 2 diabetes mellitus (194654762992016) Type 2 diabetes mellitus with hyperglycemia, without long-term current use of insulin (E11.65) Active confirmed Problem Abnormal feces (380091116) Positive colorectal cancer screening using Cologuard test (R19.5) Active confirmed Problem Cerebral infarction (239086001) Ischemic cerebrovascular accident (CVA) (I63.9) Active confirmed Problem Kidney mass (869008044) Kidney mass (N28.89) Active confirmed Vital Signs Heart Rate 60 /min 11/03/2024 Temperature 97.5 degrees Fahrenheit 11/03/2024 Blood pressure diastolic 80 mm Hg 11/03/2024 Height 5 ft 8 in in 11/03/2024 Blood pressure systolic 118 mm Hg 11/03/2024 Weight 194.4 lbs 11/03/2024 BMI 29.56 kg/m2 11/03/2024 Encounters Encounter Location Date Provider Diagnosis [facility] [place] [address] [place] [address] 10/09/2024 Provider Migration [facility] [place] [address] [place] [address] 01/12/2024 Sona Dary Wound of right foot S91.301A ; Encounter for immunization Z23 ; Lumbago with sciatica, left side M54.42 ; Other chronic pain G89.29 and Cellulitis of right lower extremity L03.115 [facility] [place] [address] [place], [place] [address] 02/18/2024 Delmar Damon Type 2 diabetes mellitus with other diabetic kidney complication E11.29 ; Essential hypertension I10 ; Memory loss R41.3 ; Skin nodule R22.9 ; Encounter for immunization Z23 ; Personal history of nicotine dependence Z87.891 and Medicare annual wellness visit, subsequent Z00.00 [facility] [place] [address] [facility] [address] [place], [place] [address] 10/20/2024 Delmar Damon Essential hypertensi on I10 ; Ischemic cerebrovascular accident (CVA) I63.9 ; Tobacco use disorder Z72.0 ; Hospital discharge follow-up Z09 ; Type 2 diabetes mellitus with hyperglycemia, without long-term current use of insulin E11.65 ; Mixed hyperlipidemia E78.2 and Personal history of nicotine dependence Z87.891 [facility] [place] [address] [facility] [address] [place], [place] [address] 11/03/2024 Delmar Damon Coronary artery dise ase involving osage coronary artery of osage heart with angina pectoris I25.119 ; Type 2 diabetes mellitus with hyperglycemia, without long-term current use of insulin E11.65 ; Mixed hyperlipidemia E78.2 and Memory loss R41.3 [facility] [place] [address] [facility] [address] [place], [place] [address] 01/12/2024 Sona Dary Wound of right foot S91.301A [facility] [place] [address] [facility] [address] [place], [place] [address] 01/22/2024 Sona Dary [facility] [place] [address] [facility] [address] [place] [address] 02/02/2024 Sona Dary Kidney mass N28.89 [facility] [place] [address] [facility] [address] [place], [place] [address] 10/18/2024 Delmar Damon [facility] [place] [address] [facility] [address] [place], [place] [address] 11/08/2024 Delmar Damon [facility] [address] [address] 11/16/2024 Sona Foote Type 2 diabetes mellitus with hyperglycemia, without long-term current use of insulin E11.65 Assessments Encounter Date Diagnosis (ICD Code) Assessment Notes Treatment Notes Treatment Clinical Notes Section Notes 01/12/2024 Wound of right foot (ICD-10 - S91.301A) cleanse at least daily with warm soapy water, rinse and pat dry. cover with thin layer of vaseline and gauze and we will arrange for treatment with wound clinic here at [facility]. Close Fu encouraged in 1-2 weeks, sooner with any increasing concern 01/12/2024 Wound of right foot (ICD-10 - S91.301A) 02/02/2024 Kidney mass (ICD-10 - N28.89) 02/18/2024 Type 2 diabetes mellitus with other diabetic kidney complication (ICD-10 - E11.29) Stable. Will check blood glucose and A1c today. No changes to treatment at this time. I will review all labs personally. 01/12/2024 Encounter for immunization (ICD-10 - Z23) 02/18/2024 Essential hypertension (ICD-10 - I10) Stable. No changes to treatment at this time. 10/20/2024 Essential hypertension (ICD-10 - I10) SBP in 140s today in office on bioprolol, hctz, losartan, amlodipine encouraged patient to check and log BP a few times a week emphasized the importance of BP managment post stroke 10/20/2024 Ischemic cerebrovascular accident (CVA) (ICD-10 - I63.9) MRI showing small acute ifacrcts of the right thalamus, right posterior limb of the internal capsule, and right parietal deep white matter, no hemorrhage noted discussed secondary stroke prevention with ASA, plavix, lipitor, blood pressure and blood glucose management Patient ok to drive during daylight hours around town Declines wanting to change diet and not interested in swallow study ECHO results still pending Follow-up in 1 month 11/03/2024 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 (ICD-10 - I25.119) 11/03/2024 Type 2 diabetes mellitus with hyperglycemia, without long-term current use of insulin (ICD-10 - E11.65) 11/16/2024 Type 2 diabetes mellitus with hyperglycemia, without long-term current use of insulin (ICD-10 - E11.65) 11/03/2024 Mixed hyperlipidemia (ICD-10 - E78.2) 10/20/2024 Tobacco use disorder (ICD-10 - Z72.0) Patient has been smoking since age of 22 not currently interested in quitting discussed the importance of tobacco cessation and its relation to stroke and secondary stroke prevention 02/18/2024 Memory loss (ICD-10 - R41.3) Patient expressed he is having difficulty with remebering things. We will schedule him for a memory evaluation. Unable to do 3/3 word recall. MoCA will be done at next visit 01/12/2024 Lumbago with sciatica, left side (ICD-10 - M54.42) 01/12/2024 Other chronic pain (ICD-10 - G89.29) 10/20/2024 Hospital discharge follow-up (ICD-10 - Z09) Personally reviewed H&P and discharge summary as available from hospital discharge documentation. Reviewed pertinent labs and test done in the hospital. Personally reconciled medication. 02/18/2024 Skin nodule (ICD-10 - R22.9) Patient's description of skin nodule consistent with Keritotic Horn. Patient advised to keep area well moisturized. No treatment necessary at this time. 11/03/2024 Memory loss (ICD-10 - R41.3) MOCA on 11/03 not interested in medication therapy for memory issues recommend repeat to follow progression recommend eye and hearing exams GDS 15 - 1.. not significant 02/18/2024 Encounter for immunization (ICD-10 - Z23) 01/12/2024 Cellulitis of right lower extremity (ICD-10 - L03.115) 10/20/2024 Type 2 diabetes mellitus with hyperglycemia, without long-term current use of insulin (ICD-10 - E11.65) on farxiga 5 mg po daily, metformin 1000 mg bid, and glimiperide 4 mg bid A1c at hospital on 10/17 8.9% discussed importance of glucose control for secondary stroke prevention increase farxiga to 10 mg po daily 10/20/2024 Mixed hyperlipidemia (ICD-10 - E78.2) on lipitor 80 mg po daily lipids on 10/17 = TC 116 / HDL 32/ LDL 70/ TG 71 continue with current regimen 02/18/2024 Personal history of nicotine dependence (ICD-10 - Z87.891) Aged out of lung cancer screenings. Discussed smoking cessation and benefits for greater than 5 minutes, patient precontemplative , not interested in quitting. 10/20/2024 Personal history of nicotine dependence (ICD-10 - Z87.891) Greater than 5 minutes discussing smoking cessation and specifically heart related stroke risk and recurrence. 02/18/2024 Medicare annual wellness visit, subsequent (ICD-10 - Z00.00) Patient presents for medicare wellness visit. 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 He states he is eating well and gets plenty of exercise. Patient denies use of sunscreen. He wears a seatbelt. He is a current smoker - has no interest in quitting. He is due for routine labs & PREVNAR 20 which we will administer today. I will review all labs personally. Plan Of Treatment Pending Test Test Name Order Date EKG : In House 06/09/2006 Physical Therapy 12/16/2013 Physical Therapy : Wound Care 01/12/2024 C-BASIC METABOLIC 03/16/2020 C-CMP 09/14/2020 C-CMP 03/15/2019 C-CMP 04/01/2013 C-CMP 06/26/2015 C-CMP 10/18/2016 C-CMP 07/13/2018 C-CMP 11/25/2013 C-CMP 07/25/2008 C-CMP 06/27/2016 C-MICROALBUMIN 03/15/2019 C-MICROALBUMIN 07/13/2018 C-LIPID PANEL 03/15/2019 C-LIPID PANEL 09/14/2020 C-LIPID PANEL 07/13/2018 C-LIPID PANEL 10/18/2016 C-LIPID PANEL 06/26/2015 C-LIPID PANEL 04/01/2013 C-LIPID PANEL 04/08/2011 C-LIPID PANEL 07/25/2008 C-LIPID PANEL 11/25/2013 C-PSA 06/26/2015 C-VITAMIN B12 06/26/2015 C-URINE CULTURE 10/21/2013 C-HGBA1C 06/26/2015 C-HGBA1C 04/14/2008 C-HGBA1C 04/01/2013 C-HGBA1C 10/18/2016 C-HGBA1C 07/13/2018 C-HGBA1C 03/16/2020 C-HGBA1C 11/25/2013 C-HGBA1C 07/25/2008 C-HGBA1C 03/15/2019 C-HGBA1C 06/27/2016 C-HGBA1C 03/17/2014 C-VITAMIN D, 25-HYDROXY 06/26/2015 C-PSA, FREE 06/26/2015 M-Complete Blood Count Auto Diff 019 M-Complete Blood Count Auto Diff 021 M-Comprehensive Metabolic Panel 04/16/20 21 M-Comprehensive Metabolic Panel 01/16/20 21 M-Comprehensive Metabolic Panel 11/13/19 19 M-Hemoglobin A1C 11/12/2018 M-Hemoglobin A1C 01/15/2021 M-Hemoglobin A1C 04/16/2021 M-Lipid Panel 04/16/2021 M-Lipid Panel 11/12/2018 M-Lipid Panel 01/15/2021 M-Thyroid Stimulating Hormone 11/12/2018 M-Vitamin B12 11/12/2018 M-Vitamin D 25 Hydroxy 11/12/2018 M-Microalb/Creat Ratio, Randm Ur 019 Physical Therapy Eval and Treat 12/16/19 24 Next Appt Details Provider Name:Delmar Pina Nelson, 02/02/2025 02:00:00 PM, [address], [place], [address], Insurance Providers Payer Name Payer Address Payer Phone Subscriber Number Group Number Insured Name Patient Relationship to Insured Coverage Start Date Coverage End Date [place] [address] [place] [address] [id number] TurciosDaylin palacios Self - patient is the insured SANDRO Medicare Supplement [address] [address] [place]ina [place], [place] [address] [id number] Daylin Turcios Self - patient is the insured citysocializer [address] [place] [address] [address] [place] [address] ACL Priscilla Turciosdith Self - patient is the insured Medications Administered Medication Instructions Date of Administration Dosage Notes Dexamethasone 4mg Injection 10/15/2021 4 mg Dexamethasone 4mg Injection 09/05/2023 4 mg Dexamethasone 4mg Injection 12/11/2023 4 mg Kenalog 06/16/2014 1 mL Medical (General) History Medical History History ICD Code CAD-CABGx5 diabetes Hypertension BPH negative cologuard screening October 2017, abnormal cologuard 2020, refuses colonoscopy history of B12 and vitamin D deficiency Ischemic Stroke 2024 Surgical History Surgery Date(Month/Year) Heart surgery 2008 prostate laser surgery 12/2015 Hospitalization History Reason Date(Month/Year) [facility] 10/16-10/17/24 prostate 12/2015 abscess Heart surgery 2008
--- NOTE | 2025-01-09 11:49 | CT_ITS ---
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 Radiation optimization: All CT scans at this facility use at least one of these dose optimization techniques: automated exposure control; mA and/or kV adjustment per patient size (includes targeted exams where dose is matched to clinical indication); or iterative reconstruction. Contrast material: ISOVUE; Contrast volume: 75 ml; Contrast route: IV; COMPARISON: CR XR HIP LT 2-3V W/PELVIS 12/11/2023 4:27 PM FINDINGS: Lungs: Lung bases with mild bibasilar subsegmental atelectasis. Liver: Normal. No mass. Gallbladder and biliary ducts: Normal. No calcified stones. No ductal dilation. Pancreas: Normal. No ductal dilation. Spleen: Normal. No splenomegaly. Adrenal glands: Normal. No mass. Kidneys and ureters: Benign-appearing bilateral renal cysts. No further follow-up needed. No renal or ureteral calculi or obstruction bilaterally. Stomach and bowel: No bowel obstruction or acute inflammation. Appendix: No evidence of appendicitis. Intraperitoneal space: Unremarkable. No free air. No significant fluid collection. Vasculature: Aneurysmal dilatation of the ascending aorta, measuring 4.7 x 4.7 cm axial. Aneurysmal dilatation of the descending aorta, measuring 3.1 x 3.2 cm axial. Ectatic abdominal aorta, measuring 2.9 x 2.4 cm. Moderate atherosclerosis. Lymph nodes: No appreciable pelvic mass or lymphadenopathy. Urinary bladder: Mildly distended bladder. No appreciable wall thickening or perivesical stranding. In the dependent bladder, there is a heterogeneous, hyperattenuating round lesion measuring 6.3 x 5.0 cm axial. Has the appearance of hematoma. A prostate mass which projects into the posterior bladder is not excluded. Recommend correlation. According to clinical discretion, consider ultrasound or MRI for further evaluation. Reproductive: Prostate gland is enlarged. On this study, no focal lesion. Few scattered faint calcifications. Bones/joints: Unremarkable. No acute fracture. Soft tissues: See Urinary bladder finding. IMPRESSION: 1. In the dependent bladder, there is a heterogeneous, hyperattenuating round lesion measuring 6.3 x 5.0 cm axial. Has the appearance of hematoma. A prostate mass which projects into the posterior bladder is not excluded. Recommend correlation. According to clinical discretion, consider ultrasound or MRI for further evaluation. 2. Prostate gland is enlarged. On this study, no focal lesion. Few scattered faint calcifications. 3. Mildly distended bladder. No appreciable wall thickening or perivesical stranding. 4. No appreciable pelvic mass or lymphadenopathy. 5. Aneurysmal dilatation of the ascending aorta, measuring 4.7 x 4.7 cm axial. Aneurysmal dilatation of the descending aorta, measuring 3.1 x 3.2 cm axial. Unless recently performed, recommend dedicated chest CT for complete evaluation. 6. No bowel obstruction or acute inflammation. COMMENTS: Consistent with the [employer]'s Incidental Findings Committee white paper (J Am Donnell Radiol 2018): Any incidental renal lesion less than 1 cm or classified as too small to characterize, or any incidental cystic renal lesion characterized as simple-appearing, is likely benign. No follow-up imaging is recommended for these lesions per consensus recommendations based on imaging criteria.
--- NOTE | 2025-01-09 11:51 | [facility].EDGENADL ---
Discharge Plan Disposition Patient Disposition: Xfer Other Prescriptions Prescriptions: No Action Janumet 50-1,000 mg tablet 1 tab PO BID sildenafil (pulm.hypertension) 20 mg tablet 20 mg PO DAILY Patient Comments: TAKE 1 TO 2 TABLET(S) BY MOUTH EVERY DAY NEEDED hydrochlorothiazide 12.5 mg capsule 12.5 mg PO DAILY Patient Comments: TAKE 1 CAPSULE BY MOUTH ONCE DAILY Jardiance 25 mg tablet 25 mg PO DAILY metformin 500 mg tablet 500 mg PO BID glimepiride 4 mg tablet 4 mg PO QAM bisoprolol-hydrochlorothiazide 2.5-6.25 mg tablet 1 tab PO DAILY amlodipine 10 mg tablet 10 mg PO DAILY finasteride 5 mg tablet 5 mg PO DAILY losartan 100 mg tablet 100 mg PO DAILY aspirin [Adult Low Dose Aspirin] 81 mg tablet,delayed release (DR/EC) 81 mg PO DAILY vitamin B complex [B Complex-Vitamin B12] tablet 1 tab PO QAM tamsulosin 0.4 mg capsule,extended release 24hr 0.4 mg PO DAILY sitagliptin phos-metformin [Janumet XR] 100-1,000 mg tablet, ER multiphase 24 hr 1 tab PO QPM atorvastatin 40 mg tablet 40 mg PO DAILY Referrals Follow up/Referrals: Noé Harry MD [Staff Physician, Urology] - See instructions Delmar Damon MD [Primary Care Provider, Internal Medicine] - See instructions Activity Restrictions/Add. Instructions Additional Instructions/Restrictions: You were evaluated in the emergency department today. You were found to have blood in your urine today with a large blood clot noted on CT scan. It is difficult to say if this is all blood clot or if there could be some underlying lesion. Please follow-up very closely with urology for further assessment. You also have an incidental finding of an abdominal aortic aneurysm or AAA, which your primary care provider can help monitor on an outpatient basis. I also recommend close follow-up with your primary care provider. Keep your Boston catheter in place. Return to the emergency department for new or worsening symptoms, such as catheter not draining, abdominal pain, or other concerns. Clinical Impressions Clinical Impression: Gross hematuria, Acute urinary retention, Hematoma of bladder wall, Abnormal CT scan, bladder, AAA (abdominal aortic aneurysm) Stand Alone Forms Stand Alone Forms: Transfer Record - ED Instructions Patient Instructions: How to Care for Your Boston Catheter -- Male, DI for Hematuria, DI for Urinary Retention in Men Print Language Print Language: Armenian Discharge ED Provider: Royce Charles General Adult HPI <Halina GimenezDO - Last Filed: 01/10/25 07:09> General Chief complaint: Urogenital-Male Stated complaint: passing blood when urinating Time Seen by Provider: 01/09/25 11:44 Mode of Arrival: Ambulatory Source of Information: Patient Description of Symptoms (Recalled from ER Triage Doc. by RN): patient states he has been urinating blood for two days with frequent urination but not urinating much History of Present Illness HPI narrative: This patient is an 84-year-old male with a history of hypertension, hyperlipidemia, type 2 diabetes, prior CVA, and BPH (surgery 4 yr ago) presenting to the emergency department for evaluation with concern for blood in his urine for the last 2 days. Patient states that initially he had blood-tinged urine with small clots, but is been mostly from blood since last night. He also notes that he is now having difficulty urinating. He states that he feels like he cannot get his bladder empty all the way and is having to urinate more frequently. He denies having issues with this since prior prostrate surgery for large prostate about 4 years ago. He denies any history of prostate cancer, he states that his only prostate history was BPH. He denies any fevers, chills, nausea, vomiting, or pain. He takes daily aspirin but no blood thinners. No other concerns or complaints noted currently. Related Data Home Medications ?Medication ?Instructions ?Recorded ?Confirmed amlodipine 10 mg tablet 10 mg PO DAILY bp 09/16/17 08/10/19 aspirin 81 mg tablet,delayed 81 mg PO DAILY prevent 09/16/17 08/10/19 release (Adult Low Dose Aspirin) atorvastatin 40 mg tablet 40 mg PO DAILY cholestero; 09/16/17 08/10/19 bisoprolol 2.5 1 tab PO DAILY bp 09/16/17 08/10/19 mg-hydrochlorothiazide 6.25 mg tablet finasteride 5 mg tablet 5 mg PO DAILY urinary 09/16/17 08/10/19 glimepiride 4 mg tablet 4 mg PO QAM sugar 09/16/17 08/10/19 losartan 100 mg tablet 100 mg PO DAILY bp 09/16/17 08/10/19 metformin 500 mg tablet 500 mg PO BID sugar 09/16/17 08/10/19 sitagliptin phos 100 mg-metformin 1 tab PO QPM sugar 09/16/17 08/10/19 ER 1,000 mg tablet,extend rel 24h mp (Janumet XR) tamsulosin 0.4 mg capsule 0.4 mg PO DAILY prostate 09/16/17 08/10/19 vitamin B complex (B 1 tab PO QAM Supplement 09/16/17 08/10/19 Complex-Vitamin B12 tablet) sitagliptin phosphate 50 1 tab PO BID 08/11/18 08/10/19 mg-metformin 1,000 mg tablet (Janumet) empagliflozin 25 mg tablet 25 mg PO DAILY 08/10/19 08/10/19 (Jardiance) hydrochlorothiazide 12.5 mg capsule 12.5 mg PO DAILY 08/10/19 08/10/19 sildenafil (pulm.hypertension) 20 20 mg PO DAILY 08/10/19 08/10/19 mg tablet Allergies Allergy/AdvReac Type Severity Reaction Status Date / Time No Known Allergies Allergy Verified 08/10/19 11:26 [facility] <Halina Gimenez DO - Last Filed: 01/10/25 07:09> [facility] Disclaimer: The information contained in this section may have been updated after the patient was seen, as this information can be updated by other users. Social History Smoking Status: Current every day smoker tobacco type: cigarettes packs per day: 2 alcohol intake: never substance use type: denies use current occupational status: employed Travel in the last 8 weeks?: Inside the [place] household members: spouse housing: house current occupation: [employer] current occupational exposures/hazards: No caffeine: Yes Have you lived/traveled outside [place] in past 30 days?: No Contact w/someone who lives/traveled outside US past 30 days?: No Exposure to someone with infectious disease in past 14 days?: No Do you have a fever (greater than 100.4 F or 38 C)?: No Have you tested positive for COVID-19?: No Exposed to someone with COVID-19 in past 14 days?: No Do you have a sore throat?: No Do you have a cough?: No Do you have any weakness?: No Do you have any diarrhea?: No Are you experiencing any unusual bleeding?: No Do you have any muscle aches/pain?: No Do you have any abdominal pain?: No Are you experiencing loss of taste or smell?: No Other Medical History Have you received the Flu Vaccine for this season: Yes Have you received the Pneumonia Vaccine: No <Halina Gimenez DO - Last Filed: 01/10/25 07:09> ROS Obtained: Yes All systems reviewed & no additional complaints except as documented Physical Exam <Halina Gimenez DO - Last Filed: 01/10/25 07:09> General General appearance: alert and in no apparent distress Head Head exam: atraumatic and normocephalic Eye Eye exam: Present normal appearance, PERRL and EOMI ENT ENT exam: Present normal exam, normal oropharynx, mucous membranes moist and normal external ear exam Neck Neck exam: Present normal inspection, full ROM and trachea midline; Absent tenderness Chest Chest inspection: Present normal inspection and symmetric chest wall rise; Absent tenderness Respiratory Respiratory exam: Present normal lung sounds bilaterally; Absent respiratory distress, wheezes, stridor or accessory muscle use Cardiovascular Cardiovascular exam: Present regular rate and normal rhythm Abdominal Exam Abdominal exam: Present soft; Absent distention, tenderness or guarding Extremities Exam Extremities exam: Present normal inspection, full ROM and normal capillary refill; Absent tenderness or edema Back Exam Back exam: Present normal inspection and full ROM; Absent tenderness Neurological Exam Neurological exam: Present alert, oriented X3, CN II-XII intact and normal gait; Absent motor sensory deficit Psychiatric Psychiatric exam: Present normal affect and normal mood Skin Skin exam: Present warm and dry Medical Decision Making <Halina Gimenez DO - Last Filed: 01/10/25 07:09> Medical Records Medical records reviewed: Yes I reviewed the patient's medical records. Screening: Per USPSTF and CDC recommendations, given the prevalence of disease in our region, it is our hospital?s policy to screen for HIV and viral Hepatitis for all patients aged 18 and over and those with ongoing risk factors. Abner Inquiry Pt receiving controlled substance: No Vital Signs: 01/09/25 11:31 01/09/25 12:02 01/09/25 12:31 Temperature 97.5 F L Temperature Source Oral Pulse Rate 64 54 L Pulse Rate [Right Radial] 61 Respiratory Rate 15 Blood Pressure 123/79 152/87 H Blood Pressure [Right Arm] 158/86 H Blood Pressure Mean Blood Pressure Mean [Right Arm] 110 Blood Pressure Source Blood Pressure Source [Right Arm] Automatic Cuff Blood Pressure Position Blood Pressure Position [Right Arm] Supine 02 Sat by Pulse Oximetry 96 100 99 Oxygen Delivery Method Room Air 01/09/25 13:01 01/09/25 13:31 01/09/25 14:01 Temperature Temperature Source Pulse Rate 55 L 54 L 59 L Pulse Rate [Right Radial] Respiratory Rate Blood Pressure 159/89 H 118/69 107/56 L Blood Pressure [Right Arm] Blood Pressure Mean Blood Pressure Mean [Right Arm] Blood Pressure Source Blood Pressure Source [Right Arm] Blood Pressure Position Blood Pressure Position [Right Arm] 02 Sat by Pulse Oximetry 97 97 99 Oxygen Delivery Method 01/09/25 14:31 01/09/25 15:01 01/09/25 15:30 Temperature Temperature Source Pulse Rate 66 51 L 58 L Pulse Rate [Right Radial] Respiratory Rate Blood Pressure 118/66 115/75 115/76 Blood Pressure [Right Arm] Blood Pressure Mean Blood Pressure Mean [Right Arm] Blood Pressure Source Blood Pressure Source [Right Arm] Blood Pressure Position Blood Pressure Position [Right Arm] 02 Sat by Pulse Oximetry 97 99 98 Oxygen Delivery Method 01/09/25 16:00 01/09/25 16:31 01/09/25 17:01 Temperature Temperature Source Pulse Rate 50 L 49 L 60 Pulse Rate [Right Radial] Respiratory Rate Blood Pressure 129/66 103/59 L 117/69 Blood Pressure [Right Arm] Blood Pressure Mean Blood Pressure Mean [Right Arm] Blood Pressure Source Blood Pressure Source [Right Arm] Blood Pressure Position Blood Pressure Position [Right Arm] 02 Sat by Pulse Oximetry 100 96 92 L Oxygen Delivery Method 01/09/25 17:30 01/09/25 18:03 01/09/25 18:32 Temperature Temperature Source Pulse Rate 61 61 60 Pulse Rate [Right Radial] Respiratory Rate Blood Pressure 131/54 L 150/82 H Blood Pressure [Right Arm] Blood Pressure Mean Blood Pressure Mean [Right Arm] Blood Pressure Source Blood Pressure Source [Right Arm] Blood Pressure Position Blood Pressure Position [Right Arm] 02 Sat by Pulse Oximetry 95 97 97 Oxygen Delivery Method 01/09/25 19:03 01/09/25 19:31 01/09/25 19:46 Temperature Temperature Source Pulse Rate 58 L 60 58 L Pulse Rate [Right Radial] Respiratory Rate Blood Pressure 130/69 127/75 161/96 H Blood Pressure [Right Arm] Blood Pressure Mean 92 109 Blood Pressure Mean [Right Arm] Blood Pressure Source Blood Pressure Source [Right Arm] Blood Pressure Position Blood Pressure Position [Right Arm] 02 Sat by Pulse Oximetry 98 97 97 Oxygen Delivery Method 01/09/25 20:01 01/09/25 20:30 01/09/25 21:13 Temperature 98.2 F Temperature Source Oral Pulse Rate 58 L 60 60 Pulse Rate [Right Radial] Respiratory Rate 14 Blood Pressure 158/97 H 146/83 H 146/83 H Blood Pressure [Right Arm] Blood Pressure Mean 117 107 Blood Pressure Mean [Right Arm] Blood Pressure Source Automatic Cuff Blood Pressure Source [Right Arm] Blood Pressure Position Sitting Blood Pressure Position [Right Arm] 02 Sat by Pulse Oximetry 95 95 Oxygen Delivery Method Room Air Lab Data Lab results reviewed: Yes I reviewed the patient's lab results. Lab Results 01/09/25 11:35: WBC 9.1, RBC 4.95, Hgb 15.6, Hct 46.9, MCV 94.7 H, MCH 31.5 H, MCHC 33.3, RDW 14.6, Plt Count 276, MPV 9.7, Neut % (Auto) 70.3, Lymph % (Auto) 18.6, Glenn % (Auto) 8.2, Eos % (Auto) 2.0, Baso % (Auto) 0.5, Neut # (Auto) 6.4, Lymph # (Auto) 1.7, Glenn # (Auto) 0.8, Eos # (Auto) 0.2, Baso # (Auto) 0.1, PT 11.1, INR 1.00, APTT 23.9, Sodium 138, Potassium 4.7, Chloride 98, Carbon Dioxide 26, Anion Gap 18.7 H, BUN 29 H, Creatinine 1.20, Estimated Creat Clear 61, Estimated GFR 58 L, Est GFR ( Amer) 70, Glucose 210 H, Calcium 9.7, Total Bilirubin 1.2, AST 35, ALT 28, Alkaline Phosphatase 121, Total Protein 7.9, Albumin 4.4, Globulin 3.5 H, Albumin/Globulin Ratio 1.3 01/09/25 11:52: Urine Color Yellow, Urine Appearance Clear, Urine pH 7.0, Ur Specific [place] 1.020, Urine Protein 3+ A, Urine Glucose (UA) 3+, Urine Ketones Negative, Urine Blood 3+ A, Urine Nitrate Negative, Urine Bilirubin Negative, Urine Urobilinogen 0.2, Ur Leukocyte Esterase Negative, Urine RBC Tntc, Urine WBC Occasional, Ur Squamous Epith Cells Occasional, Amorphous Sediment Trace, Urine Bacteria Trace 01/09/25 11:35 01/09/25 11:35 Orders (Tests/Meds): ED MEDICATIONS Discontinued Medications Generic Name Dose Route Start Last Admin Trade Name Freq PRN Reason Stop Dose Admin Lactated Ringer's 500 mls @ 999 mls/hr 01/09/25 11:50 01/09/25 12:02 Lactated Ringer's 500ml IV 01/09/25 12:20 999 mls/hr .Q31M ONE Administration Sodium Chloride 3,000 mls @ 999 mls/hr 01/09/25 12:51 Sodium Chloride 0.9% Irrigation 3,000ml Bag IR 02/08/25 12:50 NEEDED PRN CONTINUOUS BLADDER IRRIGATION Sodium Chloride 3,000 mls @ 999 mls/hr 01/09/25 13:02 Sodium Chloride 0.9% Irrigation 3,000ml Bag IR 02/08/25 13:01 NEEDED PRN CONTINUOUS BLADDER IRRIGATION Iopamidol 75 ml 01/09/25 12:46 01/09/25 12:49 Iopamidol-370 (76%);100ml Bottle IV 01/09/25 12:47 75 ml ONCE ONE Administration Nicotine 21 mg 01/09/25 19:47 01/09/25 19:59 Nicotine 21mg/24hr Patch TD 02/08/25 19:46 21 mg DAILYP PRN Administration Nicotine Cravings Sodium Chloride 10 ml 01/09/25 12:46 01/09/25 12:49 Sodium Chloride 0.9% 10ml Syr (Rad Only) IV 02/08/25 12:45 10 ml NEEDED PRN Administration Maintain IV Site ORDERS Category Date Time Status CT abdomen pelvis w con Stat Cat Scan 01/09/25 11:49 Completed Complete Blood Count Auto Diff Stat Lab 01/09/25 11:35 Completed Comprehensive Metabolic Panel Stat Lab 01/09/25 11:35 Completed PT INR [Prothrombin Time INR] Stat Lab 01/09/25 11:35 Completed PTT [Activated Partial Thrombo Time] Stat Lab 07/06/25 11:35 Completed UA [Urinalysis and Microscopic] Stat Lab 01/09/25 11:52 Completed Urine Culture Stat Micro 01/09/25 11:52 Received Medical Decision Narrative: In summary, this patient is a 84-year-old male presenting to the Emergency Department for evaluation of blood in his urine and difficulty urinating. Differential diagnoses considered include but are not limited to hemorrhagic cystitis, coagulopathy, anemia, bladder mass, LALA. Ruling out the most morbid conditions drove assessment. It should be noted patient's history includes hypertension, hyperlipidemia, diabetes, BPH which may not be at goal therapy. This complicates all aspects of care by increasing patient's risk for morbidity. I reviewed patient's past medical records and noted prior evaluations by urology back in 2019 for follow-up of BPH and urinary retention. He had 2 greenlight laser surgeries 2-1/2 years prior to that, so it appears the surgeries were actually in 2017. On exam, the patient is sitting upright in no acute distress. Abdominal exam is benign. Workup included CBC, CMP, coags, urinalysis, urine culture, postvoid bladder scan, and CT abdomen and pelvis with IV contrast. He was given 500 cc bolus of IV fluids. Postvoid bladder scan demonstrated 340 mL urine retained. I independently interpreted CT scan prior to the radiologist read and noted large amount of clot within the bladder. Please see their read for final interpretation. Labs were obtained that demonstrated reassuring CBC with no significant leukocytosis or anemia. Chemistry is reassuring with normal kidney function. He does have mildly elevated anion gap and BUN, which appears to be a chronic ongoing issue. He is receiving a small bolus of IV fluids. Ultimately given urinary retention and a large amount of clot visualized on CT scan, I feel the patient would benefit from continuous bladder irrigation. He consented to this. This was initiated with normal saline. He was irrigated until urine cleared. I advised him that I would recommend discharge home with Boston catheter and close urology follow-up for further evaluation and management, especially given that cannot exclude mass on CT scan and either the bladder or the prostate given the amount of clot and debris within the bladder. 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 I signed out care of patient at 3:15 PM. I, Dr. Charles, assumed care of this patient at 1515. Plan was to irrigate until urine is clear, however after spending 8 hours in the emergency department, patient urine is still red. Patient has had clots in his urine now and multiple episodes where his Boston catheter will stop producing urine and will require manual flushing even in the setting of continuous irrigation. With CT imaging showing possible hematoma versus mass in the bladder, I discussed the patient's case with the [facility] transfer team, however they do not have any bed availability and patient was put on a waitlist. I discussed the patient's case with transfer center and urology, Dr. Murillo, and patient was graciously accepted to the emergency department for further management. Patient was then transferred to for further management. <Royce Charles MD - Last Filed: 01/10/25 02:02> Vital Signs: 01/09/25 11:31 01/09/25 12:02 01/09/25 12:31 Temperature 97.5 F L Temperature Source Oral Pulse Rate 64 54 L Pulse Rate [Right Radial] 61 Respiratory Rate 15 Blood Pressure 123/79 152/87 H Blood Pressure [Right Arm] 158/86 H Blood Pressure Mean Blood Pressure Mean [Right Arm] 110 Blood Pressure Source Blood Pressure Source [Right Arm] Automatic Cuff Blood Pressure Position Blood Pressure Position [Right Arm] Supine 02 Sat by Pulse Oximetry 96 100 99 Oxygen Delivery Method Room Air 01/09/25 13:01 01/09/25 13:31 01/09/25 14:01 Temperature Temperature Source Pulse Rate 55 L 54 L 59 L Pulse Rate [Right Radial] Respiratory Rate Blood Pressure 159/89 H 118/69 107/56 L Blood Pressure [Right Arm] Blood Pressure Mean Blood Pressure Mean [Right Arm] Blood Pressure Source Blood Pressure Source [Right Arm] Blood Pressure Position Blood Pressure Position [Right Arm] 02 Sat by Pulse Oximetry 97 97 99 Oxygen Delivery Method 01/09/25 14:31 01/09/25 15:01 01/09/25 15:30 Temperature Temperature Source Pulse Rate 66 51 L 58 L Pulse Rate [Right Radial] Respiratory Rate Blood Pressure 118/66 115/75 115/76 Blood Pressure [Right Arm] Blood Pressure Mean Blood Pressure Mean [Right Arm] Blood Pressure Source Blood Pressure Source [Right Arm] Blood Pressure Position Blood Pressure Position [Right Arm] 02 Sat by Pulse Oximetry 97 99 98 Oxygen Delivery Method 01/09/25 16:00 01/09/25 16:31 01/09/25 17:01 Temperature Temperature Source Pulse Rate 50 L 49 L 60 Pulse Rate [Right Radial] Respiratory Rate Blood Pressure 129/66 103/59 L 117/69 Blood Pressure [Right Arm] Blood Pressure Mean Blood Pressure Mean [Right Arm] Blood Pressure Source Blood Pressure Source [Right Arm] Blood Pressure Position Blood Pressure Position [Right Arm] 02 Sat by Pulse Oximetry 100 96 92 L Oxygen Delivery Method 01/09/25 17:30 01/09/25 18:03 01/09/25 18:32 Temperature Temperature Source Pulse Rate 61 61 60 Pulse Rate [Right Radial] Respiratory Rate Blood Pressure 131/54 L 150/82 H Blood Pressure [Right Arm] Blood Pressure Mean Blood Pressure Mean [Right Arm] Blood Pressure Source Blood Pressure Source [Right Arm] Blood Pressure Position Blood Pressure Position [Right Arm] 02 Sat by Pulse Oximetry 95 97 97 Oxygen Delivery Method 01/09/25 19:03 01/09/25 19:31 01/09/25 19:46 Temperature Temperature Source Pulse Rate 58 L 60 58 L Pulse Rate [Right Radial] Respiratory Rate Blood Pressure 130/69 127/75 161/96 H Blood Pressure [Right Arm] Blood Pressure Mean 92 109 Blood Pressure Mean [Right Arm] Blood Pressure Source Blood Pressure Source [Right Arm] Blood Pressure Position Blood Pressure Position [Right Arm] 02 Sat by Pulse Oximetry 98 97 97 Oxygen Delivery Method 01/09/25 20:01 01/09/25 20:30 01/09/25 21:13 Temperature 98.2 F Temperature Source Oral Pulse Rate 58 L 60 60 Pulse Rate [Right Radial] Respiratory Rate 14 Blood Pressure 158/97 H 146/83 H 146/83 H Blood Pressure [Right Arm] Blood Pressure Mean 117 107 Blood Pressure Mean [Right Arm] Blood Pressure Source Automatic Cuff Blood Pressure Source [Right Arm] Blood Pressure Position Sitting Blood Pressure Position [Right Arm] 02 Sat by Pulse Oximetry 95 95 Oxygen Delivery Method Room Air Lab Data Lab Results 01/09/25 11:35: WBC 9.1, RBC 4.95, Hgb 15.6, Hct 46.9, MCV 94.7 H, MCH 31.5 H, MCHC 33.3, RDW 14.6, Plt Count 276, MPV 9.7, Neut % (Auto) 70.3, Lymph % (Auto) 18.6, Glenn % (Auto) 8.2, Eos % (Auto) 2.0, Baso % (Auto) 0.5, Neut # (Auto) 6.4, Lymph # (Auto) 1.7, Glenn # (Auto) 0.8, Eos # (Auto) 0.2, Baso # (Auto) 0.1, PT 11.1, INR 1.00, APTT 23.9, Sodium 138, Potassium 4.7, Chloride 98, Carbon Dioxide 26, Anion Gap 18.7 H, BUN 29 H, Creatinine 1.20, Estimated Creat Clear 61, Estimated GFR 58 L, Est GFR ( Amer) 70, Glucose 210 H, Calcium 9.7, Total Bilirubin 1.2, AST 35, ALT 28, Alkaline Phosphatase 121, Total Protein 7.9, Albumin 4.4, Globulin 3.5 H, Albumin/Globulin Ratio 1.3 01/09/25 11:52: Urine Color Yellow, Urine Appearance Clear, Urine pH 7.0, Ur Specific [place] 1.020, Urine Protein 3+ A, Urine Glucose (UA) 3+, Urine Ketones Negative, Urine Blood 3+ A, Urine Nitrate Negative, Urine Bilirubin Negative, Urine Urobilinogen 0.2, Ur Leukocyte Esterase Negative, Urine RBC Tntc, Urine WBC Occasional, Ur Squamous Epith Cells Occasional, Amorphous Sediment Trace, Urine Bacteria Trace Orders (Tests/Meds): ED MEDICATIONS Discontinued Medications Generic Name Dose Route Start Last Admin Trade Name Freq PRN Reason Stop Dose Admin Lactated Ringer's 500 mls @ 999 mls/hr 01/09/25 11:50 01/09/25 12:02 Lactated Ringer's 500ml IV 01/09/25 12:20 999 mls/hr .Q31M ONE Administration Sodium Chloride 3,000 mls @ 999 mls/hr 01/09/25 12:51 Sodium Chloride 0.9% Irrigation 3,000ml Bag IR 02/08/25 12:50 NEEDED PRN CONTINUOUS BLADDER IRRIGATION Sodium Chloride 3,000 mls @ 999 mls/hr 01/09/25 13:02 Sodium Chloride 0.9% Irrigation 3,000ml Bag IR 02/08/25 13:01 NEEDED PRN CONTINUOUS BLADDER IRRIGATION Iopamidol 75 ml 01/09/25 12:46 01/09/25 12:49 Iopamidol-370 (76%);100ml Bottle IV 01/09/25 12:47 75 ml ONCE ONE Administration Nicotine 21 mg 01/09/25 19:47 01/09/25 19:59 Nicotine 21mg/24hr Patch TD 02/08/25 19:46 21 mg DAILYP PRN Administration Nicotine Cravings Sodium Chloride 10 ml 01/09/25 12:46 01/09/25 12:49 Sodium Chloride 0.9% 10ml Syr (Rad Only) IV 02/08/25 12:45 10 ml NEEDED PRN Administration Maintain IV Site ORDERS Category Date Time Status CT abdomen pelvis w con Stat Cat Scan 01/09/25 11:49 Completed Complete Blood Count Auto Diff Stat Lab 01/09/25 11:35 Completed Comprehensive Metabolic Panel Stat Lab 01/09/25 11:35 Completed PT INR [Prothrombin Time INR] Stat Lab 01/09/25 11:35 Completed PTT [Activated Partial Thrombo Time] Stat Lab 01/09/25 11:35 Completed UA [Urinalysis and Microscopic] Stat Lab 01/09/25 11:52 Completed Urine Culture Stat Micro 01/09/25 11:52 Received Medical Decision Narrative: In summary, this patient is a 84-year-old male presenting to the Emergency Department for evaluation of blood in his urine and difficulty urinating. Differential diagnoses considered include but are not limited to hemorrhagic cystitis, coagulopathy, anemia, bladder mass, LALA. Ruling out the most morbid conditions drove assessment. It should be noted patient's history includes hypertension, hyperlipidemia, diabetes, BPH which may not be at goal therapy. This complicates all aspects of care by increasing patient's risk for morbidity. I reviewed patient's past medical records and noted prior evaluations by urology back in 2019 for follow-up of BPH and urinary retention. He had 2 greenlight laser surgeries 2-1/2 years prior to that, so it appears the surgeries were actually in 2017. On exam, the patient is sitting upright in no acute distress. Abdominal exam is benign. Workup included CBC, CMP, coags, urinalysis, urine culture, postvoid bladder scan, and CT abdomen and pelvis with IV contrast. He was given 500 cc bolus of IV fluids. Postvoid bladder scan demonstrated 340 mL urine retained. I independently interpreted CT scan prior to the radiologist read and noted large amount of clot within the bladder. Please see their read for final interpretation. Labs were obtained that demonstrated reassuring CBC with no significant leukocytosis or anemia. Chemistry is reassuring with normal kidney function. He does have mildly elevated anion gap and BUN, which appears to be a chronic ongoing issue. He is receiving a small bolus of IV fluids. Ultimately given urinary retention and a large amount of clot visualized on CT scan, I feel the patient would benefit from continuous bladder irrigation. He consented to this. This was initiated with normal saline. He was irrigated until urine cleared. I advised him that I would recommend discharge home with Boston catheter and close urology follow-up for further evaluation and management, especially given that cannot exclude mass on CT scan and either the bladder or the prostate given the amount of clot and debris within the bladder. 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 Ultimately, the patient was able to be discharged home with close PCP and urology follow-up and strict return precautions. Boston catheter in place for urinary retention. Strict return precautions given at time of discharge. I, Dr. Charles, assumed care of this patient at 1515. Plan was to irrigate until urine is clear, however after spending 8 hours in the emergency department, patient urine is still red. Patient has had clots in his urine now and multiple episodes where his Boston catheter will stop producing urine and will require manual flushing even in the setting of continuous irrigation. With CT imaging showing possible hematoma versus mass in the bladder, I discussed the patient's case with the [facility] transfer team, however they do not have any bed availability and patient was put on a waitlist. I discussed the patient's case with transfer center and urology, Dr. Murillo, and patient was graciously accepted to the emergency department for further management. Patient was then transferred to for further management. Critical Care <Royce Charles MD - Last Filed: 01/10/25 02:02> Critical Care Time Critical Care Time: No
[2025-01-09 11:56] LABS: Microscopic, Urine URINE MICROSCOPIC (MICROSCOPIC)
--- NOTE | 2025-01-09 12:01 | PC.NURSE ---
PVR 343ml
[2025-01-09] MEDS: RINGERS SOLUTION,LACTATED 500 ML 999 ML IV (12:02)
[2025-01-09 12:07] LABS: Hematocrit 46.9 % (42.0-52.0); Hemoglobin 15.6 g/dL (14.1-18.0); Immature Granulocytes % 0.4 %; Mean Corpuscular HGB Conc 33.3 g/dL (31.8-35.4); Mean Corpuscular Hemoglobin 31.5 pg (27.0-31.2); Mean Corpuscular Volume 94.7 fl (80-94); Nucleated Red Blood Cells % 0 %; Platelet Count 276 K/mm3 (142-424); Red Blood Count 4.95 M/mm3 (4.60-6.20); Red Cell Distribution Width-SD 50.9 fL; White Blood Count 9.1 K/mm3 (4.8-10.8)
[2025-01-09 12:09] LABS: Bilirubin,Urine Negative (Negative); Color,Urine YELLOW (Yellow); Glucose,Urine (UA) 3+ (Negative); Ketones,Urine Negative (Negative); Leukocyte Esterase,Urine Negative (Negative); PH,Urine 7.0 (5.0-8.5); Protein,Urine 3+ (Negative); Specific Gravity, Urine 1.020 (1.005-1.030); Urobilinogen,Urine 0.2 EU/dl (0.2)
[2025-01-09 12:12] LABS: Alanine Aminotransferase 28 U/L (12-78); Albumin Level 4.4 g/dl (3.5-5.0); Albumin/Globulin Ratio 1.3 (1.1-1.8); Alkaline Phosphatase 121 U/L (38-126); Anion Gap 18.7 mEq/L (5-15); Aspartate Amino Transferase 35 U/L (17-59); Bilirubin,Total 1.2 mg/dl (0.2-1.3); Blood Urea Nitrogen 29 mg/dl (9-20); Calcium 9.7 mg/dl (8.4-10.2); Carbon Dioxide 26 mmol/L (22.0-30.0); Chloride 98 mmol/L (98-107); Creatinine Clearance Estimated 61 mL/min (50-200); Creatinine,Serum 1.20 mg/dl (0.66-1.25); Estimated Glomerular Filt Rate 58 ml/min (>60); GFR (African American) 70 ML/MIN (>60); Globulin 3.5 g/dL (1.3-3.2); Glucose 210 mg/dl (74-100); Potassium 4.7 mmoL/L (3.5-5.1); Sodium 138 mmol/L (136-145); Total Protein,Serum 7.9 g/dl (6.3-8.2)
[2025-01-09 12:23] LABS: Activated Partial Thrombo Time 23.9 seconds (22.8-30.6); INR 1.00 (0.9-1.1); Prothrombin Time 11.1 seconds (10.1-12.5)
[2025-01-09] MEDS: SODIUM CHLORIDE 0.9% 10ML SYR (RAD ONLY) 10 ML IV (12:49)
[2025-01-09] MEDS: IOPAMIDOL-370 (76%);100ML BOTTLE 75 ML IV (12:49)
--- NOTE | 2025-01-09 13:21 | PC.NURSE ---
500ml urine output
[2025-01-09 13:26] LABS: Amorphous Sediment,Urine Trace /lpf; Bacteria,Urine Trace /lpf; RBC,Urine TNTC #/hpf (0-3); Squamous Epithelial Cell,Urine Occasional #/hpf (0-5); WBC,Urine Occasional #/hpf (0-3)
--- NOTE | 2025-01-09 13:51 | PC.NURSE ---
Rounded on patient, warm blanket provided at this time
--- NOTE | 2025-01-09 18:09 | PC.NURSE ---
I notified the pt was having pain and that when bladder scanning the pt he was showing around 450ml in the bladder. He wants the bladder manually flushed. the pts brumfield is now draining appropriately with CBI in progress. pt states he is having some relief.
--- NOTE | 2025-01-09 19:53 | PC.NURSE ---
Called [facility] for a pt transfer. stated they would call back
[2025-01-09] MEDS: NICOTINE 21MG/24HR PATCH 21 MG TD (19:59)
--- NOTE | 2025-01-09 20:08 | PC.NURSE ---
Called [facility] for poss xfer. Will call back in approx 15 minutes
--- NOTE | 2025-01-09 20:13 | PC.NURSE ---
Changed bedding for pt, blanket has been provided at this time
== END 2025-01-09 21:14 | disposition other institution (70) ==
PROVIDERS: Emergency Medicine; Emergency Provider Student in an Organized Health Care Education/Training Program; PCP Internal Medicine Adolescent Medicine
DX: R31.0 Gross hematuria (principal); I71.40 Abdominal aortic aneurysm, without rupture, unspecified; R33.9 Retention of urine, unspecified; S37.22XA Contusion of bladder, initial encounter; F17.210 Nicotine dependence, cigarettes, uncomplicated
CPT/HCPCS: 51702; 74177; 80053; 81001; 85025; 85610; 85730; 87086; 96361; 99285; J7120; Q9967